=== PATIENT | male | born 2000 | race Hispanic/Latino ===

== ENCOUNTER 2020-01-20 19:09 | Inpatient (IN) | payer SELFPAY ==
[~2020-01-20] VITALS: Ht 170.2 cm; Wt 79.4 kg
[2020-01-20] MEDS ORDERED: PANTOPRAZOLE 40 MG 10ML VIAL IV STA (19:26)
[2020-01-20] MEDS ORDERED: ONDANSETRON HCL INJ 2MG/ML 2ML 2 MG/ML VIAL IV STA (19:26)
[2020-01-20] MEDS ORDERED: SODIUM CHLORIDE 0.9% 1000ML 1,000 ML IV ONE (19:30)
--- NOTE | 2020-01-20 19:30 | NUR ---
glucose of 570 mg/dl, Dr. Rogel made aware
--- NOTE | 2020-01-20 19:32 | Emergency Department Note ---
History of Present Illnes History of Present Illness Chief Complaint: Abdominal Complaints History of Present Illness This is a 19 year old male /o generalized body weakness, nausea and vomiting for 3 days, pt denies being tested for covid-19, states that he is a diabetic and he last checked his sugar 3 days and it was over 200 mg/dl. Historian: Patient Arrival Mode: Car Onset (how long ago): day(s) (3) Location: abd Quality: intermittent epigastric pain, n/v for 3 days Radiation: Reports non-radiation Severity: severe Onset quality: gradual Duration (how long): day(s) (3) Progression: worsening Chronicity: new Context: Denies recent illness, Denies recent surgery, Denies trauma/injury Relieving factors: none Exacerbating factors: none Associated symptoms: Reports denies other symptoms Treatments prior to arrival: none Past Medical/Family History Physician Review I have reviewed the patient's past medical and family history. Any updates have been documented here. Past Medical History Recent Fever: No Clinical Suspicion of Infectio: No New/Unexplained Change in Ment: No Past Medical History: Diabetes Other Medical History: dka Past Surgical History: None Social History Smoking Cessation: Former smoker Alcohol Use: Occasional Any Illegal Drug Use: No Family History Family history of heart diseas: No Other family history htn Review of Systems Review of Systems Constitutional: Reports no symptoms EENTM: Reports no symptoms Cardiovascular: Reports no symptoms Respiratory: Reports no symptoms Gastrointestinal: Reports as per HPI Genitourinary: Reports no symptoms Musculoskeletal: Reports no symptoms Integumentary: Reports no symptoms Neurological: Reports no symptoms Psychological: Reports no symptoms Endocrine: Reports no symptoms Hematological/Lymphatic: Reports no symptoms Physical Exam Related Data Allergies: Coded Allergies: No Known Allergies (Unverified , 01/20/20) Triage Vital Signs Vital Signs Date Time Temp Pulse Resp B/P (MAP) Pulse Ox O2 Delivery O2 Flow Rate FiO2 01/20/20 19:20 97.7 120 22 140/92 100 Room Air Vital signs reviewed: Yes Physical Exam CONSTITUTIONAL Constitutional: Present well-developed, Present well-nourished, Present distressed (mild) HENT HENT: Present normocephalic, Present atraumatic, Present mucosae dry, Present nose normal HENT L/R: Present left ext ear normal, Present right ext ear normal EYES Eyes: Reports PERRL, Reports conjunctivae normal NECK Neck: Present ROM normal PULMONARY Pulmonary: Present effort normal, Present breath sounds normal CARDIOVASCULAR Cardiovascular: Present regular rhythm, Present heart sounds normal, Present capillary refill normal, Present tachycardia (120) GASTROINTESTINAL Abdominal: Present soft, Present nontender, Present bowel sounds normal GENITOURINARY Genitourinary: Present exam deferred SKIN Skin: Present warm, Present dry MUSCULOSKELETAL Musculoskeletal: Present ROM normal NEUROLOGICAL Neurological: Present alert, Present oriented x 3, Present no gross motor or sensory deficits PSYCHOLOGICAL Psychological: Present mood/affect normal, Present judgement normal Results Laboratory Laboratory Laboratory Tests Test 01/20/20 19:30 White Blood Count 6.02 x10e3/uL (4.8-10.8) Red Blood Count 6.30 x10e6/uL (4.3-5.7) Hemoglobin 17.3 g/dL (14.0-18.0) Hematocrit 51.4 % (38.2-49.6) Mean Corpuscular Volume 81.6 fL (81-99) Mean Corpuscular Hemoglobin 27.5 pg (28-32) Mean Corpuscular Hemoglobin Concent 33.7 g/dL (31-35) Red Cell Distribution Width 13.7 % (11.7-14.4) Platelet Count 316 x10e3/uL (140-360) Neutrophils (%) (Auto) 65.5 % (38.7-80.0) Lymphocytes (%) (Auto) 29.7 % (18.0-39.1) Monocytes (%) (Auto) 2.8 % (4.4-11.3) Eosinophils (%) (Auto) 1.3 % (0.0-6.0) Basophils (%) (Auto) 0.5 % (0.0-1.0) Neutrophils # (Auto) 3.9 (2.1-6.9) Lymphocytes # (Auto) 1.8 (1.0-3.2) Monocytes # (Auto) 0.2 (0.2-0.8) Eosinophils # (Auto) 0.1 (0.0-0.4) Basophils # (Auto) 0.0 (0.0-0.1) Absolute Immature Granulocyte (auto 0.01 x10e3/uL (0-0.1) Urine Color Yellow (YELLOW) Urine Clarity Clear (CLEAR) Urine pH 5 (5 - 7) Urine Specific [employer] 1.020 (1.010-1.025) Urine Protein 1+ (NEGATIVE) Urine Glucose (UA) 2+ (NEGATIVE) Urine Ketones 2+ (NEGATIVE) Urine Blood Trace (NEGATIVE) Urine Nitrite Negative (NEGATIVE) Urine Bilirubin Small (NEGATIVE) Urine Urobilinogen 0.2 mg/dL (0.2 - 1) Urine Leukocyte Esterase Negative (NEGATIVE) Urine RBC 0-5 /HPF (0-5) Urine WBC None /HPF (0-5) Urine Epithelial Cells None /LPF (NONE) Urine Bacteria None /HPF (NONE) Sodium Level 132 mmol/L (136-145) Potassium Level 3.9 mmol/L (3.5-5.1) Chloride Level 100 mmol/L (98-107) Carbon Dioxide Level 8 mmol/L (22-29) Anion Gap 27.9 mmol/L (8-16) Blood Urea Nitrogen 7 mg/dL (7-26) Creatinine 1.70 mg/dL (0.72-1.25) Estimat Glomerular Filtration Rate 51 ML/MIN (60-) BUN/Creatinine Ratio 4 (6-25) Glucose Level 566 mg/dL (74-118) Calcium Level 9.2 mg/dL (8.4-10.2) Total Bilirubin 0.5 mg/dL (0.2-1.2) Aspartate Amino Transf (AST/SGOT) 24 IU/L (5-34) Alanine Aminotransferase (ALT/SGPT) 20 IU/L (0-55) Alkaline Phosphatase 123 IU/L (40-150) Total Protein 8.6 g/dL (6.5-8.1) Albumin 4.6 g/dL (3.5-5.0) Globulin 4.0 g/dL (2.3-3.5) Albumin/Globulin Ratio 1.2 (0.8-2.0) Amylase Level 31 U/L (25-125) Lipase 34 U/L (8-78) Lab results reviewed: Yes Critical Care Time Total Critical Care Time (min): 31 Critcal care necessary due to: endocrine crisis Critcal care time spent by me: develop tx plan w patient/surrogate, discussion w consultants, discussion w primary provider, evaluation patient response to tx, examination of patient, obtaining hx from patient/surrogate, order/perform tx or interventions, order/review laboratory studies, pulse oximetry, re-evaluation of patient condition Assessment & Plan Medical Decision Making [facility] pt with h/o dm and dka with abd pain,n/v/d for 3 days cbc, cmp, amylase, lipase, ua, ordered to eval for dka, pancreatitis, elevated lft's, leukocytosis, electrolyte abnormality, ketones in urine, dehydration, renal insufficiency zofran 4 mg iv ordered protonix 40 mg iv ordered ns 1 liter bolus iv ordered PT FOUND TO BE IN DKA DKA INSULIN PROTOCOL INITIATED I SPOKE WITH DR LAL, DR PAVON AND DR ADAM, ADMIT ICU Assessment & Plan Final Impression: (1) DKA (diabetic ketoacidoses) (2) Nausea & vomiting Depart Disposition: ADMITTED Last Vital Signs Date Time Temp Pulse Resp B/P (MAP) Pulse Ox O2 Delivery O2 Flow Rate FiO2 01/20/20 19:20 97.7 120 22 140/92 100 Room Air URBANO RONDON MD Jan 20, 2020 19:32
[2020-01-20 19:43] LABS: BASOPHILS % 0.5 % (0.0-1.0); EOSINOPHILS # (AUTO) 0.1 (0.0-0.4); EOSINOPHILS % 1.3 % (0.0-6.0); HEMATOCRIT 51.4 % (38.2-49.6); HEMOGLOBIN 17.3 g/dL (14.0-18.0); LYMPHOCYTES # (AUTO) 1.8 (1.0-3.2); LYMPHOCYTES % 29.7 % (18.0-39.1); MEAN CORPUSCULAR HEMOGLOBIN 27.5 pg (28-32); MEAN CORPUSCULAR HGB CONC 33.7 g/dL (31-35); MEAN CORPUSCULAR VOLUME 81.6 fL (81-99); MONOCYTES # (AUTO) 0.2 (0.2-0.8); MONOCYTES % 2.8 % (4.4-11.3); NEUTROPHILS # (AUTO) 3.9 (2.1-6.9); NEUTROPHILS % 65.5 % (38.7-80.0); PLATELET COUNT 316 x10e3/uL (140-360); RED CELL DISTRIBUTION WIDTH 13.7 % (11.7-14.4)
[2020-01-20] MEDS ORDERED: PANTOPRAZOLE 40 MG 10ML VIAL ONE (19:52)
[2020-01-20 20:05] LABS: ALBUMIN 4.6 g/dL (3.5-5.0); ALBUMIN/GLOBULIN RATIO 1.2 (0.8-2.0); ANION GAP 27.9 mmol/L (8-16); CALCIUM 9.2 mg/dL (8.4-10.2); CREATININE, SERUM 1.7 mg/dL (0.72-1.25); POTASSIUM 3.9 mmol/L (3.5-5.1)
[2020-01-20 20:09] LABS: BILIRUBIN,URINE SMALL (NEGATIVE); CLARITY,URINE CLEAR (CLEAR); COLOR,URINE YELLOW (YELLOW); KETONES,URINE 2+ (NEGATIVE); LEUKOCYTE ESTERASE ,URINE NEGATIVE (NEGATIVE); NITRITE,URINE NEGATIVE (NEGATIVE); PROTEIN,URINE DIPSTICK 1+ (NEGATIVE); URINE UROBILINOGEN 0.2 mg/dL (0.2 - 1)
[2020-01-20 20:20] LABS: AMYLASE 31 U/L (25-125); LIPASE 34 U/L (8-78)
[2020-01-20 20:22] LABS: RBC,URINE 0-5 /HPF (0-5)
[2020-01-20] MEDS ORDERED: POTASSIUM CHLORIDE 20MEQ/100ML 200 ML IV PRN (20:30)
[2020-01-20] MEDS ORDERED: ONDANSETRON HCL INJ 2MG/ML 2ML 2 MG/ML VIAL IV PRN (20:30)
[2020-01-20] MEDS ORDERED: POTASSIUM CHLORIDE 20MEQ/100ML 100 ML INJ PRN (20:30)
[2020-01-20] MEDS ORDERED: SODIUM CHLORIDE 0.9% 1000ML 1,000 ML IV SCH (20:30)
--- OUTSIDE RECORDS SUMMARY | 2020-01-20 20:33 | XMS REPORT | Continuity of Care Document ---
Author Author [facility] Organization [facility] Address [address] [place] [address] Phone Unavailable Care Team Providers Care Sales Service Executive Name Role Phone Unavailable Unavailable Payers Payer Name Policy Type Policy Number Effective Date Expiration Date S ource Problems This patient has no known problems. Allergies, Adverse Reactions, Alerts Allergy Name Allergy Type Status Severity Reaction(s) Onset Date Inacti ve Date Treating Clinician Comments Source No Known Allergies DA Active U 2016-12-07 00:00:00 [facility] Medications This patient has no known medications. Procedures This patient has no known procedures. Results Test Description Test Time Test Comments Results Result Comments Source LACTIC ACID 2019 18:02:00 Test Item LACTIC ACID (test code = LACT) 0.8 mmol/L 0.4-1.9 N COMMENTS TO CHANNEL LIP WETTER: add onBASIC METABOLIC [id number] 17:11:00* Test Item Value Reference Range Interpretation Comments SODIUM (test code = NA) 140 mmol/L 136-145 RESU LT VERIFIED BY REPEAT ANALYSIS POTASSIUM (test code = K) 3.6 mmol/L 3.5-5.1 N CHLORIDE (test code = CL) 103.0 mmol/L 98-107 N CARBON DIOXIDE (test code = CO2) 28.0 mmol/L 21-32 N ANION GAP (test code = GAP) 12.6 10-20 N GLUCOSE (test code = GLU) 237 mg/dL 74-106 H BLOOD UREA NITROGEN (test code = BUN) 5 mg/dL 7-18 L GLOMERULAR FILTRATION RATE (test code = GFR) > 60 mL/min >=60 Estimated GFR by using Modified MDRD formula.Chronic kidney disease is defined as either kidney damageor GFR <60 mL/min/1.73 m2 for >3 months. CREATININE (test code = CREAT) 0.60 mg/dL 0.7-1.3 L BUN/CREATININE RATIO (test code = BUN/CREA) 8.9 10-20 L CALCIUM (test code = CA) 8.3 mg/dL 8.5-10.1 L [id number] 16:42:00* Test Item Value Reference Range Interpretation Comments GLUBED (test code = GLUBED) 220 mg/dL 74-106 H Performed by certified solder deposit operator at [facility] [id number] 14:56:00* Test Item Value Reference Range Interpretation Comments GLUBED (test code = GLUBED) 247 mg/dL 74-106 H Performed by certified solder deposit operator at [facility] BASIC METABOLIC [id number] 13:07:00* Test Item Value Reference Range Interpretation Comments SODIUM (test code = NA) 145 mmol/L 136-145 N POTASSIUM (test code = K) 2.9 mmol/L 3.5-5.1 L Re sults called to [id number] by V.LAB.DINO 04/18/19 1307Critical results verified and read back by Nurse? Y CHLORIDE (test code = CL) 108.0 mmol/L 98-107 H CARBON DIOXIDE (test code = CO2) 28.0 mmol/L 21-32 N ANION GAP (test code = GAP) 11.9 10-20 N GLUCOSE (test code = GLU) 100 mg/dL 74-106 N BLOOD UREA NITROGEN (test code = BUN) 5 mg/dL 7-18 L GLOMERULAR FILTRATION RATE (test code = GFR) > 60 mL/min >=60 Estimated GFR by using Modified MDRD formula.Chronic kidney disease is defined as either kidney damageor GFR <60 mL/min/1.73 m2 for >3 months. CREATININE (test code = CREAT) 0.60 mg/dL 0.7-1.3 L BUN/CREATININE RATIO (test code = BUN/CREA) 9.0 10-20 L CALCIUM (test code = CA) 8.2 mg/dL 8.5-10.1 L SPECIMEN COMMENTS: Q4H while on insulin [id number] 12:44:00* Test Item Value Reference Range Interpretation Comments GLUBED (test code = GLUBED) 67 mg/dL 74-106 L Performed by certified solder deposit operator at [facility] [id number] 11:41:00* Test Item Value Reference Range Interpretation Comments GLYCOSYLATED HEMOGLOBIN (HA1C) (test code = GLYHGB) 12.8 % HbA1 4. 8-6.0 H ESTIMATED AVERAGE GLUCOSE (test code = EAG) 321 MG/DL [id number] 11:30:00* Test Item Value Reference Range Interpretation Comments GLUBED (test code = GLUBED) 104 mg/dL 74-106 N Performed by certified solder deposit operator at [facility] BASIC METABOLIC [id number] 10:00:00* Test Item Value Reference Range Interpretation Comments SODIUM (test code = NA) 142 mmol/L 136-145 N POTASSIUM (test code = K) 3.8 mmol/L 3.5-5.1 N CHLORIDE (test code = CL) 107.0 mmol/L 98-107 N CARBON DIOXIDE (test code = CO2) 26.0 mmol/L 21-32 N ANION GAP (test code = GAP) 12.8 10-20 N GLUCOSE (test code = GLU) 257 mg/dL 74-106 H BLOOD UREA NITROGEN (test code = BUN) 6 mg/dL 7-18 L GLOMERULAR FILTRATION RATE (test code = GFR) > 60 mL/min >=60 Estimated GFR by using Modified MDRD formula.Chronic kidney disease is defined as either kidney damageor GFR <60 mL/min/1.73 m2 for >3 months. CREATININE (test code = CREAT) 0.60 mg/dL 0.7-1.3 L BUN/CREATININE RATIO (test code = BUN/CREA) 9.6 10-20 L CALCIUM (test code = CA) 8.4 mg/dL 8.5-10.1 L SPECIMEN COMMENTS: Q4H while on insulin [id number] 09:54:00* Test Item Value Reference Range Interpretation Comments GLUBED (test code = GLUBED) 159 mg/dL 74-106 H Performed by certified solder deposit operator at [facility] BASIC METABOLIC [id number] 09:53:00* Test Item Value Reference Range Interpretation Comments SODIUM (test code = NA) 142 mmol/L 136-145 N POTASSIUM (test code = K) 3.8 mmol/L 3.5-5.1 N CHLORIDE (test code = CL) 107.0 mmol/L 98-107 N CARBON DIOXIDE (test code = CO2) mmol/L 21-32 ANION GAP (test code = GAP) 10-20 GLUCOSE (test code = GLU) mg/dL 74-106 BLOOD UREA NITROGEN (test code = BUN) mg/dL 7-18 GLOMERULAR FILTRATION RATE (test code = GFR) mL/min >=60 CREATININE (test code = CREAT) mg/dL 0.7-1.3 BUN/CREATININE RATIO (test code = BUN/CREA) 10-20 CALCIUM (test code = CA) mg/dL 8.5-10.1 SPECIMEN COMMENTS: Q4H while on insulin [id number] 09:17:00* Test Item Value Reference Range Interpretation Comments GLUBED (test code = GLUBED) 255 mg/dL 74-106 H Performed by certified solder deposit operator at [facility] DRUGS OF ABUSE SCREEN [id number] 08:56:00* Test Item Value Reference Range Interpretation Comments UA PH DIPSTICK (test code = DARLENE) 5.0 5.0-8.0 URN COCAINE (test code = COCAURN) NEGATIVE <300 ng/mL URN CANNABINOIDS (test code = CANNABURN) NEGATIVE <50 ng/mL URN AMPHETAMINE (test code = AMPHETURN) NEGATIVE <1000 ng/mL URN BARBITURATE (test code = BARBITURN) NEGATIVE <200 ng/mL URN BENZODIAZEPINE (test code = BENZOURN) NEGATIVE <200 ng/mL URN OPIATES (test code = OPIATURN) NEGATIVE <300 ng/mL URN PHENCYCLIDINE (PCP) (test code = PHENCURN) NEGATIVE <25 ng/ mL URN METHADONE (test code = METHAURN) NEGATIVE <300 ng/mL DRUGS OF ABUSE SCREEN [id number] 08:48:00* Test Item Value Reference Range Interpretation Comments UA PH DIPSTICK (test code = DARLENE) 5.0-8.0 URN COCAINE (test code = COCAURN) NEGATIVE <300 ng/mL URN CANNABINOIDS (test code = CANNABURN) NEGATIVE <50 ng/mL URN AMPHETAMINE (test code = AMPHETURN) NEGATIVE <1000 ng/mL URN BARBITURATE (test code = BARBITURN) NEGATIVE <200 ng/mL URN BENZODIAZEPINE (test code = BENZOURN) NEGATIVE <200 ng/mL URN OPIATES (test code = OPIATURN) NEGATIVE <300 ng/mL URN PHENCYCLIDINE (PCP) (test code = PHENCURN) NEGATIVE <25 ng/ mL URN METHADONE (test code = METHAURN) NEGATIVE <300 ng/mL URINALYSIS [id number] 08:48:00* Test Item Value Reference Range Interpretation Comments UA COLOR (test code = COLU) YELLOW YELLOW UA APPEARANCE (test code = APPU) CLEAR CLEAR UA GLUCOSE DIPSTICK (test code = DGLUU) 300-500 (3+) mg/dL NEGATIVE UA BILIRUBIN DIPSTICK (test code = BILU) NEGATIVE NEGATIVE UA KETONE DIPSTICK (test code = KETU) 1+ mg/dL NEGATIVE UA SPECIFIC GRAVITY (test code = SGU) <=1.005 1.001-1.035 UA BLOOD DIPSTICK (test code = TERRELL) NEGATIVE NEGATIVE UA PH DIPSTICK (test code = DARLENE) 5.0 5.0-8.0 UA PROTEIN DIPSTICK (test code = PROU) NEGATIVE mg/dL Neg-15 UA UROBILINIOGEN DIPSTICK (test code = URO) 0.2 mg/dL 0.0-0.2 UA NITRITE DIPSTICK (test code = YOAV) NEGATIVE NEGATIVE UA LEUKOCYTE ESTERASE W REFLEX (test code = LEUUR) NEGATIVE NEG ATIVE UA WBC (test code = WBCU) 0-5 per HPF 0-5 UA RBC (test code = RBCU) NONE SEEN per HPF 0-5 UA EPITHELIAL CELLS (test code = EPIU) None seen per HPF Few UA BACTERIA (test code = BACU) NONE SEEN per HPF NONE UA MUCUS (test code = MUCU) FEW #/LPF FEW Urine Source? Clean CatchURINALYSIS [id number] 08:42:00* Test Item Value Reference Range Interpretation Comments UA COLOR (test code = COLU) YELLOW YELLOW UA APPEARANCE (test code = APPU) CLEAR CLEAR UA GLUCOSE DIPSTICK (test code = DGLUU) 300-500 (3+) mg/dL NEGATIVE UA BILIRUBIN DIPSTICK (test code = BILU) NEGATIVE NEGATIVE UA KETONE DIPSTICK (test code = KETU) 1+ mg/dL NEGATIVE UA SPECIFIC GRAVITY (test code = SGU) <=1.005 1.001-1.035 UA BLOOD DIPSTICK (test code = TERRELL) NEGATIVE NEGATIVE UA PH DIPSTICK (test code = DARLENE) 5.0 5.0-8.0 UA PROTEIN DIPSTICK (test code = PROU) NEGATIVE mg/dL Neg-15 UA UROBILINIOGEN DIPSTICK (test code = URO) 0.2 mg/dL 0.0-0.2 UA NITRITE DIPSTICK (test code = YOAV) NEGATIVE NEGATIVE UA LEUKOCYTE ESTERASE W REFLEX (test code = LEUUR) NEGATIVE NEG ATIVE UA WBC (test code = WBCU) per HPF 0-5 UA RBC (test code = RBCU) per HPF 0-5 UA EPITHELIAL CELLS (test code = EPIU) per HPF Few UA BACTERIA (test code = BACU) per HPF NONE Urine Source? Clean CatchURINALYSIS [id number] 08:42:00* Test Item Value Reference Range Interpretation Comments UA COLOR (test code = COLU) YELLOW YELLOW UA APPEARANCE (test code = APPU) CLEAR CLEAR UA GLUCOSE DIPSTICK (test code = DGLUU) 300-500 (3+) mg/dL NEGATIVE UA BILIRUBIN DIPSTICK (test code = BILU) NEGATIVE NEGATIVE UA KETONE DIPSTICK (test code = KETU) 1+ mg/dL NEGATIVE UA SPECIFIC GRAVITY (test code = SGU) <=1.005 1.001-1.035 UA BLOOD DIPSTICK (test code = TERRELL) NEGATIVE NEGATIVE UA PH DIPSTICK (test code = DARLENE) 5.0 5.0-8.0 UA PROTEIN DIPSTICK (test code = PROU) NEGATIVE mg/dL Neg-15 UA UROBILINIOGEN DIPSTICK (test code = URO) 0.2 mg/dL 0.0-0.2 UA NITRITE DIPSTICK (test code = YOAV) NEGATIVE NEGATIVE UA LEUKOCYTE ESTERASE W REFLEX (test code = LEUUR) NEGATIVE NEG ATIVE UA WBC (test code = WBCU) 0-5 per HPF 0-5 UA RBC (test code = RBCU) per HPF 0-5 UA EPITHELIAL CELLS (test code = EPIU) per HPF Few UA BACTERIA (test code = BACU) per HPF NONE UA MUCUS (test code = MUCU) FEW #/LPF FEW Urine Source? Clean CatchBASIC METABOLIC [id number] 08:28:00* Test Item Value Reference Range Interpretation Comments SODIUM (test code = NA) 142 mmol/L 136-145 RESU LT VERIFIED BY REPEAT ANALYSIS POTASSIUM (test code = K) 3.5 mmol/L 3.5-5.1 N CHLORIDE (test code = CL) 107.0 mmol/L 98-107 N CARBON DIOXIDE (test code = CO2) 25.0 mmol/L 21-32 N ANION GAP (test code = GAP) 13.5 10-20 N GLUCOSE (test code = GLU) 361 mg/dL 74-106 H BLOOD UREA NITROGEN (test code = BUN) 6 mg/dL 7-18 L GLOMERULAR FILTRATION RATE (test code = GFR) > 60 mL/min >=60 Estimated GFR by using Modified MDRD formula.Chronic kidney disease is defined as either kidney damageor GFR <60 mL/min/1.73 m2 for >3 months. CREATININE (test code = CREAT) 0.70 mg/dL 0.7-1.3 N BUN/CREATININE RATIO (test code = BUN/CREA) 8.2 10-20 L CALCIUM (test code = CA) 8.1 mg/dL 8.5-10.1 L SPECIMEN COMMENTS: Q4H while on insulin dripSPECIMEN COMMENTS: Q8H while on insu sarah [id number] 08:28:00* Test Item Value Reference Range Interpretation Comments MAGNESIUM (test code = MAG) 1.8 mg/dL 1.8-2.4 N SPECIMEN COMMENTS: Q4H while on insulin dripSPECIMEN COMMENTS: Q8H while on insu sarah dripBASIC METABOLIC [id number] 08:22:00* Test Item Value Reference Range Interpretation Comments SODIUM (test code = NA) 142 mmol/L 136-145 POTASSIUM (test code = K) 3.5 mmol/L 3.5-5.1 N CHLORIDE (test code = CL) 107.0 mmol/L 98-107 N CARBON DIOXIDE (test code = CO2) 25.0 mmol/L 21-32 N ANION GAP (test code = GAP) 13.5 10-20 N GLUCOSE (test code = GLU) 361 mg/dL 74-106 H BLOOD UREA NITROGEN (test code = BUN) 6 mg/dL 7-18 L GLOMERULAR FILTRATION RATE (test code = GFR) > 60 mL/min >=60 Estimated GFR by using Modified MDRD formula.Chronic kidney disease is defined as either kidney damageor GFR <60 mL/min/1.73 m2 for >3 months. CREATININE (test code = CREAT) 0.70 mg/dL 0.7-1.3 N BUN/CREATININE RATIO (test code = BUN/CREA) 8.2 10-20 L CALCIUM (test code = CA) 8.1 mg/dL 8.5-10.1 L SPECIMEN COMMENTS: Q4H while on insulin dripSPECIMEN COMMENTS: Q8H while on insu sarah [id number] 08:22:00* Test Item Value Reference Range Interpretation Comments MAGNESIUM (test code = MAG) 1.8 mg/dL 1.8-2.4 N SPECIMEN COMMENTS: Q4H while on insulin dripSPECIMEN COMMENTS: Q8H while on insu sarah [id number] 08:06:00* Test Item Value Reference Range Interpretation Comments GLUBED (test code = GLUBED) 322 mg/dL 74-106 H Performed by certified solder deposit operator at [facility] [id number] 07:02:00* Test Item Value Reference Range Interpretation Comments GLUBED (test code = GLUBED) > 500 mg/dL 74-106 HH Performed by certified solder deposit operator at [facility] - XR CHEST 1 [id number] 05:17:00 FAX: Solomon Palacios MD [place]: B St: [facility] FAX: Jihan Champion MD [phone] Name: SHARON DIAZ [facility] : 2000 Age/S: 19/M [address] [facility] Unit #: [id number] Loc: AN[place]IONE [place] [address] Phys: Solomon Palacios MD Acct: [id number] Dis Date: Status: REG ER PHONE #: [phone] Exam Date: 2019 0453 FAX #: [phone] Reason: Altered Mental Status EXAMS: CPT CODE: [id number] XR CHEST 1 V 68728 AFTER HOURS SERVICE ON: 2019 5:17 AM AP Portable Chest Location Code M12 HISTORY: Altered Mental Status FINDINGS: There are no infiltrates. There are no pleural effusions. There is no pneumothorax. Cardiac silhouette and mediastinum appear within normal limits. IMPRESSION: No active pulmonary findings. at 0517 Reported and signed by: Korin Ross M.D. CC: Solomon Palacios MD; Jihan Wise Technologist: Vasu Brooks RT(R); BAKARI ZAYAS RT(R) Trnscrd Date/Time/By: 2019 (0517) : By: [email or web address] Orig Print D/T: S: 2019 (0518) PAGE 1 Signed Report BASIC METABOLIC [id number] 05:12:00* Test Item Value Reference Range Interpretation Comments SODIUM (test code = NA) 131 mmol/L 136-145 L POTASSIUM (test code = K) 3.4 mmol/L 3.5-5.1 L CHLORIDE (test code = CL) 92.0 mmol/L 98-107 L CARBON DIOXIDE (test code = CO2) 21.0 mmol/L 21-32 N ANION GAP (test code = GAP) 21.4 10-20 H GLUCOSE (test code = GLU) 652 mg/dL 74-106 Re sults called [place] [address] by GENEVIEVE 04/18/19 0512Critical results verified and read back by Nurse? Y BLOOD UREA NITROGEN (test code = BUN) 10 mg/dL 7-18 N GLOMERULAR FILTRATION RATE (test code = GFR) > 60 mL/min >=60 Estimated GFR by using Modified MDRD formula.Chronic kidney disease is defined as either kidney damageor GFR <60 mL/min/1.73 m2 for >3 months. CREATININE (test code = CREAT) 1.20 mg/dL 0.7-1.3 N BUN/CREATININE RATIO (test code = BUN/CREA) 8.7 10-20 L CALCIUM (test code = CA) 9.6 mg/dL 8.5-10.1 N HEPATIC FUNCTION [id number] 05:12:00* Test Item Value Reference Range Interpretation Comments TOTAL PROTEIN (test code = PROT) 7.6 gram/dL 6.4-8.2 N ALBUMIN (test code = ALB) 4.1 g/dL 3.4-5.0 N GLOBULIN (test code = GLOB) 3.5 gram/dL 2.7-4.2 N ALBUMIN/GLOBULIN RATIO (test code = A/G) 1.2 0.75-1.50 N BILIRUBIN TOTAL (test code = BILT) 0.40 mg/dL 0.0-1.0 N BILIRUBIN DIRECT (test code = BILD) 0.14 mg/dL 0.0-0.20 N SGOT/AST (test code = AST) 18 IUnit/L 15-37 N SGPT/ALT (test code = ALT) 29 IUnit/L 12-78 N ALKALINE PHOSPHATASE TOTAL (test code = ALKP) 154 IUnit/L 45-117 H Note change in reference range due to change in reagent. [id number] 05:12:00* Test Item Value Reference Range Interpretation Comments TROPONIN-I (test code = TROPI) <0.015 ng/mL 0-0.045 N [id number] 05:12:00* Test Item Value Reference Range Interpretation Comments ALCOHOL (test code = ALC) 181 mg/dL 0.0-3.0 H -- INTERPRETIVE DATA NOTE: POSITIVE SCREENING RESULTS SHOULD BE CONSIDERED PRESUMPTIVE.WHEN COLLECTED FOR MEDICAL PURPOSES ONLY. SPECIMEN WILL NOTBE COLLECTED BY CHAIN OF CUSTODY.IF A CONFIRMATION OF POSITIVE RESULTS IS DESIRED, ACONFIRMATION TEST MUST BE REQUESTED BY THE PHYSICIAN AT ANADDITIONAL CHARGE TO THE PATIENT. BETA [id number] 05:12:00* Test Item Value Reference Range Interpretation Comments BETA HYDROBUTYRATE (test code = BETHYD) 1.53 mmol/L 0.02-0.27 H LACTIC [id number] 05:11:00* Test Item Value Reference Range Interpretation Comments LACTIC ACID (test code = LACT) 5.9 mmol/L 0.4-1.9 HH Results called to [id number] by GENEVIEVE 04/18/19 0510Critical results verified and read back by Nurse?Y BASIC METABOLIC [id number] 05:09:00* Test Item Value Reference Range Interpretation Comments SODIUM (test code = NA) 131 mmol/L 136-145 L POTASSIUM (test code = K) 3.4 mmol/L 3.5-5.1 L CHLORIDE (test code = CL) 92.0 mmol/L 98-107 L CARBON DIOXIDE (test code = CO2) mmol/L 21-32 ANION GAP (test code = GAP) 10-20 GLUCOSE (test code = GLU) mg/dL 74-106 BLOOD UREA NITROGEN (test code = BUN) mg/dL 7-18 GLOMERULAR FILTRATION RATE (test code = GFR) mL/min >=60 CREATININE (test code = CREAT) mg/dL 0.7-1.3 BUN/CREATININE RATIO (test code = BUN/CREA) 10-20 CALCIUM (test code = CA) mg/dL 8.5-10.1 HEPATIC FUNCTION [id number] 05:09:00* Test Item Value Reference Range Interpretation Comments TOTAL PROTEIN (test code = PROT) gram/dL 6.4-8.2 ALBUMIN (test code = ALB) g/dL 3.4-5.0 GLOBULIN (test code = GLOB) gram/dL 2.7-4.2 ALBUMIN/GLOBULIN RATIO (test code = A/G) 0.75-1.50 BILIRUBIN TOTAL (test code = BILT) mg/dL 0.0-1.0 BILIRUBIN DIRECT (test code = BILD) mg/dL 0.0-0.20 SGOT/AST (test code = AST) IUnit/L 15-37 SGPT/ALT (test code = ALT) IUnit/L 12-78 ALKALINE PHOSPHATASE TOTAL (test code = ALKP) IUnit/L 45-117 [id number] 05:09:00* Test Item Value Reference Range Interpretation Comments TROPONIN-I (test code = TROPI) ng/mL 0-0.045 [id number] 05:09:00* Test Item Value Reference Range Interpretation Comments ALCOHOL (test code = ALC) mg/dL 0-3 BETA [id number] 05:09:00* Test Item Value Reference Range Interpretation Comments BETA HYDROBUTYRATE (test code = BETHYD) 1.53 mmol/L 0.02-0.27 H - CT HEAD/BRAIN W/O [id number] 04:59:00 Name: SHARON DIAZ [facility] : 2000 Age/S: 19 / M [address] [facility] Unit #: [id number] Loc: ANTIONE [place] [address] Phys: Solomon Palacios MD Acct: [id number] Dis Date: Status: PRE ER PHONE #: [phone] Exam Date: 2019 0430 FAX #: [phone] Reason: Altered Mental Status EXAMS: CPT CODE: [id number] CT HEAD/BRAIN W/O CONT 84898 AFTER HOURS SERVICE ON: 2019 4:[address] Scan of the Brain Without Contrast Location Code M12 History: Altered Mental Status Technique: Scans were performed on a helical scanner pre IV contrast only. The study is limited secondary to lack of intravenous contrast, particularly for evaluation of masses. One or more of the following dose reduction techniques were used: Automated exposure control, adjustment of the mA and/or kV according to patient size, and/or utilization of iterative reconstruction technique. Findings: There is no hydrocephalus. Basal cisterns are patent. There is no intracranial h yperdense hemorrhage. There is no midline shift or mass effect. No effacem ent of the gonzalez-white matter junction to indicate acute infarction. There is no skull fracture. Impression: No acute int racranial CT findings. at 0459 Reported and signed by: Korin Ross M.D. CC: Solomon Palacios MD; Jihan Wise Technologshelby t:MARIA ELENA YOUNGKINSON CT CTDI: DLP: Trnscb Date/Time: (0459) [email or web address] Orig Print D/T: S: 2019 (0 502) PAGE 1 Signed Report BASIC METABOLIC [id number] 04:56:00* Test Item Value Reference Range Interpretation Comments SODIUM (test code = NA) mmol/L 136-145 POTASSIUM (test code = K) mmol/L 3.5-5.1 CHLORIDE (test code = CL) mmol/L 98-107 CARBON DIOXIDE (test code = CO2) mmol/L 21-32 ANION GAP (test code = GAP) 10-20 GLUCOSE (test code = GLU) mg/dL 74-106 BLOOD UREA NITROGEN (test code = BUN) mg/dL 7-18 GLOMERULAR FILTRATION RATE (test code = GFR) mL/min >=60 CREATININE (test code = CREAT) mg/dL 0.7-1.3 BUN/CREATININE RATIO (test code = BUN/CREA) 10-20 CALCIUM (test code = CA) mg/dL 8.5-10.1 HEPATIC FUNCTION [id number] 04:56:00* Test Item Value Reference Range Interpretation Comments TOTAL PROTEIN (test code = PROT) gram/dL 6.4-8.2 ALBUMIN (test code = ALB) g/dL 3.4-5.0 GLOBULIN (test code = GLOB) gram/dL 2.7-4.2 ALBUMIN/GLOBULIN RATIO (test code = A/G) 0.75-1.50 BILIRUBIN TOTAL (test code = BILT) mg/dL 0.0-1.0 BILIRUBIN DIRECT (test code = BILD) mg/dL 0.0-0.20 SGOT/AST (test code = AST) IUnit/L 15-37 SGPT/ALT (test code = ALT) IUnit/L 12-78 ALKALINE PHOSPHATASE TOTAL (test code = ALKP) IUnit/L 45-117 [id number] 04:56:00* Test Item Value Reference Range Interpretation Comments TROPONIN-I (test code = TROPI) ng/mL 0-0.045 [id number] 04:56:00* Test Item Value Reference Range Interpretation Comments ALCOHOL (test code = ALC) mg/dL 0-3 BETA [id number] 04:56:00* Test Item Value Reference Range Interpretation Comments BETA HYDROBUTYRATE (test code = BETHYD) 1.53 mmol/L 0.02-0.27 H CBC W/AUTO [id number] 04:53:00* Test Item Value Reference Range Interpretation Comments WHITE BLOOD CELL (test code = WBC) 5.8 K/mm3 4.5-12.5 N RED BLOOD CELL (test code = RBC) 5.73 mill/mm3 4.0-5.8 N HEMOGLOBIN (test code = HGB) 15.7 gram/dL 13.0-17.5 N HEMATOCRIT (test code = HCT) 44.2 % 42.0-52.0 N MEAN CELL VOLUME (test code = MCV) 77.1 fL 80-98 L MEAN CELL HGB (test code = MCH) 27.4 picogram 27.0-33.0 N MEAN CELL HGB CONCETRATION (test code = MCHC) 35.5 gram/dL 33.0-36. 0 N RED CELL DISTRIBUTION WIDTH (test code = RDW) 12.3 % 11.6-16. 2 N RED CELL DISTRIBUTION WIDTH SD (test code = RDW-SD) 33.9 fL 37 .0-51.0 L PLATELET COUNT (test code = PLT) 233 K/mm3 150-450 N MEAN PLATELET VOLUME (test code = MPV) 11.3 fL 6.7-11.0 H NEUTROPHIL % (test code = NT%) 45.2 % 39.0-69.0 N IMMATURE GRANULOCYTE % (test code = IG%) 0.2 % 0.0-5.0 N LYMPHOCYTE % (test code = LY%) 45.4 % 25.0-55.0 N MONOCYTE % (test code = MO%) 7.1 % 0.0-10.0 N EOSINOPHIL % (test code = EO%) 1.9 % 0.0-5.0 N BASOPHIL % (test code = BA%) 0.2 % 0.0-1.0 N NUCLEATED RBC % (test code = NRBC%) 0.0 % 0-0 N NEUTROPHIL # (test code = NT#) 2.63 K/mm3 1.8-7.7 N IMMATURE GRANULOCYTE # (test code = IG#) 0.01 x10 3/uL 0-0.03 N LYMPHOCYTE # (test code = LY#) 2.64 K/mm3 1.0-5.0 N MONOCYTE # (test code = MO#) 0.41 K/mm3 0-0.8 N EOSINOPHIL # (test code = EO#) 0.11 K/mm3 0.0-0.5 N BASOPHIL # (test code = BA#) 0.01 K/mm3 0.0-0.2 N NUCLEATED RBC # (test code = NRBC#) 0.00 K/mm3 0.0-0.1 N MANUAL DIFF REQUIRED (test code = MDIFF) NO [id number] 08:21:00* Test Item Value Reference Range Interpretation Comments GLUBED (test code = GLUBED) 109 mg/dL 74-106 H Performed by certified solder deposit operator at [facility]2019-09-18 08:21:00* Test Item Value Reference Range Interpretation Comments GLUBED (test code = GLUBED) 166 mg/dL 74-106 H Performed by certified solder deposit operator at [facility]2019-09-16 10:12:00* Test Item Value Reference Range Interpretation Comments GLUBED (test code = GLUBED) 248 mg/dL 74-106 H Performed by certified solder deposit operator at [facility] [id number] 10:12:00* Test Item Value Reference Range Interpretation Comments GLUBED (test code = GLUBED) 322 mg/dL 74-106 H Performed by certified solder deposit operator at [facility] [id number] 10:12:00* Test Item Value Reference Range Interpretation Comments GLUBED (test code = GLUBED) 169 mg/dL 74-106 H Performed by certified solder deposit operator at [facility] [id number] 10:12:00* Test Item Value Reference Range Interpretation Comments GLUBED (test code = GLUBED) 167 mg/dL 74-106 H Performed by certified solder deposit operator at [facility] [id number] 10:12:00* Test Item Value Reference Range Interpretation Comments GLUBED (test code = GLUBED) 139 mg/dL 74-106 H Performed by certified solder deposit operator at [facility] [id number] 10:12:00* Test Item Value Reference Range Interpretation Comments GLUBED (test code = GLUBED) 283 mg/dL 74-106 H Performed by certified solder deposit operator at [facility] [id number] 07:46:00* Test Item Value Reference Range Interpretation Comments GLUBED (test code = GLUBED) 324 mg/dL 74-106 H Performed by certified solder deposit operator at [facility] COMPREHENSIVE METABOLIC [id number] 08:36:00* Test Item Value Reference Range Interpretation Comments SODIUM (test code = NA) 136 mmol/L 136-145 N POTASSIUM (test code = K) 3.2 mmol/L 3.5-5.1 L CHLORIDE (test code = CL) 103.0 mmol/L 98-107 N CARBON DIOXIDE (test code = CO2) 21.0 mmol/L 21-32 N ANION GAP (test code = GAP) 15.2 10-20 N GLUCOSE (test code = GLU) 256 mg/dL 74-106 H BLOOD UREA NITROGEN (test code = BUN) 7 mg/dL 7-18 N GLOMERULAR FILTRATION RATE (test code = GFR) > 60 mL/min >=60 Estimated GFR by using Modified MDRD formula.Chronic kidney disease is defined as either kidney damageor GFR <60 mL/min/1.73 m2 for >3 months. CREATININE (test code = CREAT) 0.80 mg/dL 0.7-1.3 N BUN/CREATININE RATIO (test code = BUN/CREA) 8.8 10-20 L TOTAL PROTEIN (test code = PROT) 6.0 gram/dL 6.4-8.2 L ALBUMIN (test code = ALB) 3.0 g/dL 3.4-5.0 L GLOBULIN (test code = GLOB) 3.0 gram/dL 2.7-4.2 N ALBUMIN/GLOBULIN RATIO (test code = A/G) 1.0 0.75-1.50 N CALCIUM (test code = CA) 8.6 mg/dL 8.5-10.1 N BILIRUBIN TOTAL (test code = BILT) 0.60 mg/dL 0.0-1.0 N SGOT/AST (test code = AST) 38 IUnit/L 15-37 H SGPT/ALT (test code = ALT) 58 IUnit/L 12-78 N ALKALINE PHOSPHATASE TOTAL (test code = ALKP) 87 IUnit/L 45-117 N Note change in reference range due to change in reagent. COMPREHENSIVE METABOLIC [id number] 08:19:00* Test Item Value Reference Range Interpretation Comments SODIUM (test code = NA) 136 mmol/L 136-145 N POTASSIUM (test code = K) 3.2 mmol/L 3.5-5.1 L CHLORIDE (test code = CL) 103.0 mmol/L 98-107 N CARBON DIOXIDE (test code = CO2) mmol/L 21-32 ANION GAP (test code = GAP) 10-20 GLUCOSE (test code = GLU) mg/dL 74-106 BLOOD UREA NITROGEN (test code = BUN) mg/dL 7-18 GLOMERULAR FILTRATION RATE (test code = GFR) mL/min >=60 CREATININE (test code = CREAT) mg/dL 0.7-1.3 BUN/CREATININE RATIO (test code = BUN/CREA) 10-20 TOTAL PROTEIN (test code = PROT) gram/dL 6.4-8.2 ALBUMIN (test code = ALB) g/dL 3.4-5.0 GLOBULIN (test code = GLOB) gram/dL 2.7-4.2 ALBUMIN/GLOBULIN RATIO (test code = A/G) 0.75-1.50 CALCIUM (test code = CA) mg/dL 8.5-10.1 BILIRUBIN TOTAL (test code = BILT) mg/dL 0.0-1.0 SGOT/AST (test code = AST) IUnit/L 15-37 SGPT/ALT (test code = ALT) IUnit/L 12-78 ALKALINE PHOSPHATASE TOTAL (test code = ALKP) IUnit/L 45-117 CBC W/AUTO [id number] 06:22:00* Test Item Value Reference Range Interpretation Comments WHITE BLOOD CELL (test code = WBC) 4.7 K/mm3 4.5-12.5 N RED BLOOD CELL (test code = RBC) 5.31 mill/mm3 4.0-5.8 N HEMOGLOBIN (test code = HGB) 14.2 gram/dL 13.0-17.5 N HEMATOCRIT (test code = HCT) 42.3 % 42.0-52.0 N MEAN CELL VOLUME (test code = MCV) 79.7 fL 80-98 L MEAN CELL HGB (test code = MCH) 26.7 picogram 27.0-33.0 L MEAN CELL HGB CONCETRATION (test code = MCHC) 33.6 gram/dL 33.0-36. 0 N RED CELL DISTRIBUTION WIDTH (test code = RDW) 14.6 % 11.6-16. 2 N RED CELL DISTRIBUTION WIDTH SD (test code = RDW-SD) 41.2 fL 37 .0-51.0 N PLATELET COUNT (test code = PLT) 193 K/mm3 150-450 N MEAN PLATELET VOLUME (test code = MPV) 11.0 fL 6.7-11.0 N NEUTROPHIL % (test code = NT%) 43.6 % 39.0-69.0 N IMMATURE GRANULOCYTE % (test code = IG%) 0.2 % 0.0-5.0 N LYMPHOCYTE % (test code = LY%) 43.9 % 25.0-55.0 N MONOCYTE % (test code = MO%) 6.4 % 0.0-10.0 N EOSINOPHIL % (test code = EO%) 5.5 % 0.0-5.0 H BASOPHIL % (test code = BA%) 0.4 % 0.0-1.0 N NUCLEATED RBC % (test code = NRBC%) 0.0 % 0-0 N NEUTROPHIL # (test code = NT#) 2.05 K/mm3 1.8-7.7 N IMMATURE GRANULOCYTE # (test code = IG#) 0.01 x10 3/uL 0-0.03 N LYMPHOCYTE # (test code = LY#) 2.07 K/mm3 1.0-5.0 N MONOCYTE # (test code = MO#) 0.30 K/mm3 0-0.8 N EOSINOPHIL # (test code = EO#) 0.26 K/mm3 0.0-0.5 N BASOPHIL # (test code = BA#) 0.02 K/mm3 0.0-0.2 N NUCLEATED RBC # (test code = NRBC#) 0.00 K/mm3 0.0-0.1 N CBC W/AUTO [id number] 06:20:00* Test Item Value Reference Range Interpretation Comments WHITE BLOOD CELL (test code = WBC) K/mm3 4.5-12.5 RED BLOOD CELL (test code = RBC) mill/mm3 4.0-5.8 HEMOGLOBIN (test code = HGB) 14.2 gram/dL 13.0-17.5 N HEMATOCRIT (test code = HCT) 42.3 % 42.0-52.0 N MEAN CELL VOLUME (test code = MCV) fL 80-98 MEAN CELL HGB (test code = MCH) picogram 27.0-33.0 MEAN CELL HGB CONCETRATION (test code = MCHC) gram/dL 33.0-36. 0 RED CELL DISTRIBUTION WIDTH (test code = RDW) % 11.6-16. 2 RED CELL DISTRIBUTION WIDTH SD (test code = RDW-SD) fL 37 .0-51.0 PLATELET COUNT (test code = PLT) K/mm3 150-450 MEAN PLATELET VOLUME (test code = MPV) fL 6.7-11.0 NEUTROPHIL % (test code = NT%) % 39.0-69.0 IMMATURE GRANULOCYTE % (test code = IG%) % 0.0-5.0 LYMPHOCYTE % (test code = LY%) % 25.0-55.0 MONOCYTE % (test code = MO%) % 0.0-10.0 EOSINOPHIL % (test code = EO%) % 0.0-5.0 BASOPHIL % (test code = BA%) % 0.0-1.0 NEUTROPHIL # (test code = NT#) K/mm3 1.8-7.7 LYMPHOCYTE # (test code = LY#) K/mm3 1.0-5.0 MONOCYTE # (test code = MO#) K/mm3 0-0.8 EOSINOPHIL # (test code = EO#) K/mm3 0.0-0.5 BASOPHIL # (test code = BA#) K/mm3 0.0-0.2 BASIC METABOLIC [id number] 03:07:00* Test Item Value Reference Range Interpretation Comments SODIUM (test code = NA) 138 mmol/L 136-145 RESU LT VERIFIED BY REPEAT ANALYSIS POTASSIUM (test code = K) 3.3 mmol/L 3.5-5.1 L CHLORIDE (test code = CL) 106.0 mmol/L 98-107 N CARBON DIOXIDE (test code = CO2) 18.0 mmol/L 21-32 L ANION GAP (test code = GAP) 17.3 10-20 N GLUCOSE (test code = GLU) 237 mg/dL 74-106 H BLOOD UREA NITROGEN (test code = BUN) 7 mg/dL 7-18 N GLOMERULAR FILTRATION RATE (test code = GFR) > 60 mL/min >=60 Estimated GFR by using Modified MDRD formula.Chronic kidney disease is defined as either kidney damageor GFR <60 mL/min/1.73 m2 for >3 months. CREATININE (test code = CREAT) 0.80 mg/dL 0.7-1.3 N BUN/CREATININE RATIO (test code = BUN/CREA) 8.5 10-20 L CALCIUM (test code = CA) 8.6 mg/dL 8.5-10.1 N [id number] 03:07:00* Test Item Value Reference Range Interpretation Comments PHOSPHORUS (test code = PHOS) 2.2 mg/dL 2.5-4.9 L [id number] 03:07:00* Test Item Value Reference Range Interpretation Comments MAGNESIUM (test code = MAG) 1.8 mg/dL 1.8-2.4 N BASIC METABOLIC [id number] 17:36:00* Test Item Value Reference Range Interpretation Comments SODIUM (test code = NA) 143 mmol/L 136-145 N POTASSIUM (test code = K) 2.7 mmol/L 3.5-5.1 Re sults called to [id number] by [facility] 02/03/19 1734Critical results verified and read back by Nurse? Y CHLORIDE (test code = CL) 115.0 mmol/L 98-107 H CARBON DIOXIDE (test code = CO2) 19.0 mmol/L 21-32 L ANION GAP (test code = GAP) 11.7 10-20 N RESULTS CALLED TO [id number] BY [facility] 02/03/19 1735 GLUCOSE (test code = GLU) 154 mg/dL 74-106 H BLOOD UREA NITROGEN (test code = BUN) 5 mg/dL 7-18 L GLOMERULAR FILTRATION RATE (test code = GFR) > 60 mL/min >=60 Estimated GFR by using Modified MDRD formula.Chronic kidney disease is defined as either kidney damageor GFR <60 mL/min/1.73 m2 for >3 months. CREATININE (test code = CREAT) 0.70 mg/dL 0.7-1.3 N BUN/CREATININE RATIO (test code = BUN/CREA) 7.1 10-20 L CALCIUM (test code = CA) 6.9 mg/dL 8.5-10.1 L [id number] 12:03:00* Test Item Value Reference Range Interpretation Comments GLUBED (test code = GLUBED) 178 mg/dL 74-106 H Performed by certified solder deposit operator at [facility] [id number] 11:05:00* Test Item Value Reference Range Interpretation Comments GLUBED (test code = GLUBED) 168 mg/dL 74-106 H Performed by certified solder deposit operator at [facility] BASIC METABOLIC [id number] 10:46:00* Test Item Value Reference Range Interpretation Comments SODIUM (test code = NA) 140 mmol/L 136-145 N POTASSIUM (test code = K) 3.5 mmol/L 3.5-5.1 N CHLORIDE (test code = CL) 110.0 mmol/L 98-107 H CARBON DIOXIDE (test code = CO2) 15.0 mmol/L 21-32 L ANION GAP (test code = GAP) 18.5 10-20 N GLUCOSE (test code = GLU) 160 mg/dL 74-106 H BLOOD UREA NITROGEN (test code = BUN) 7 mg/dL 7-18 N GLOMERULAR FILTRATION RATE (test code = GFR) > 60 mL/min >=60 Estimated GFR by using Modified MDRD formula.Chronic kidney disease is defined as either kidney damageor GFR <60 mL/min/1.73 m2 for >3 months. CREATININE (test code = CREAT) 0.80 mg/dL 0.7-1.3 N BUN/CREATININE RATIO (test code = BUN/CREA) 8.8 10-20 L CALCIUM (test code = CA) 8.2 mg/dL 8.5-10.1 L BASIC METABOLIC [id number] 10:42:00* Test Item Value Reference Range Interpretation Comments SODIUM (test code = NA) 140 mmol/L 136-145 N POTASSIUM (test code = K) 3.5 mmol/L 3.5-5.1 N CHLORIDE (test code = CL) 110.0 mmol/L 98-107 H CARBON DIOXIDE (test code = CO2) mmol/L 21-32 ANION GAP (test code = GAP) 10-20 GLUCOSE (test code = GLU) mg/dL 74-106 BLOOD UREA NITROGEN (test code = BUN) mg/dL 7-18 GLOMERULAR FILTRATION RATE (test code = GFR) mL/min >=60 CREATININE (test code = CREAT) mg/dL 0.7-1.3 BUN/CREATININE RATIO (test code = BUN/CREA) 10-20 CALCIUM (test code = CA) mg/dL 8.5-10.1 [id number] 10:14:00* Test Item Value Reference Range Interpretation Comments GLUBED (test code = GLUBED) 182 mg/dL 74-106 H Performed by certified solder deposit operator at [facility] [id number] 09:56:00* Test Item Value Reference Range Interpretation Comments PHOSPHORUS (test code = PHOS) 2.9 mg/dL 2.5-4.9 N [id number] 08:31:00* Test Item Value Reference Range Interpretation Comments GLUBED (test code = GLUBED) 161 mg/dL 74-106 H Performed by certified solder deposit operator at [facility] [id number] 07:52:00* Test Item Value Reference Range Interpretation Comments GLYCOSYLATED HEMOGLOBIN (HA1C) (test code = GLYHGB) 12.4 % HbA1 4. 8-6.0 H ESTIMATED AVERAGE GLUCOSE (test code = EAG) 309 MG/DL [id number] 07:19:00* Test Item Value Reference Range Interpretation Comments GLUBED (test code = GLUBED) 170 mg/dL 74-106 H Performed by certified solder deposit operator at [facility] BASIC METABOLIC [id number] 06:18:00* Test Item Value Reference Range Interpretation Comments SODIUM (test code = NA) 141 mmol/L 136-145 N POTASSIUM (test code = K) 3.1 mmol/L 3.5-5.1 L CHLORIDE (test code = CL) 110.0 mmol/L 98-107 H CARBON DIOXIDE (test code = CO2) 16.0 mmol/L 21-32 L ANION GAP (test code = GAP) 18.1 10-20 N GLUCOSE (test code = GLU) 109 mg/dL 74-106 H BLOOD UREA NITROGEN (test code = BUN) 8 mg/dL 7-18 N GLOMERULAR FILTRATION RATE (test code = GFR) > 60 mL/min >=60 Estimated GFR by using Modified MDRD formula.Chronic kidney disease is defined as either kidney damageor GFR <60 mL/min/1.73 m2 for >3 months. CREATININE (test code = CREAT) 0.90 mg/dL 0.7-1.3 N BUN/CREATININE RATIO (test code = BUN/CREA) 8.9 10-20 L CALCIUM (test code = CA) 8.2 mg/dL 8.5-10.1 L BASIC METABOLIC [id number] 06:10:00* Test Item Value Reference Range Interpretation Comments SODIUM (test code = NA) 141 mmol/L 136-145 N POTASSIUM (test code = K) 3.1 mmol/L 3.5-5.1 L CHLORIDE (test code = CL) 110.0 mmol/L 98-107 H CARBON DIOXIDE (test code = CO2) mmol/L 21-32 ANION GAP (test code = GAP) 10-20 GLUCOSE (test code = GLU) mg/dL 74-106 BLOOD UREA NITROGEN (test code = BUN) mg/dL 7-18 GLOMERULAR FILTRATION RATE (test code = GFR) mL/min >=60 CREATININE (test code = CREAT) mg/dL 0.7-1.3 BUN/CREATININE RATIO (test code = BUN/CREA) 10-20 CALCIUM (test code = CA) mg/dL 8.5-10.1 CBC W/AUTO [id number] 05:27:00* Test Item Value Reference Range Interpretation Comments WHITE BLOOD CELL (test code = WBC) 5.4 K/mm3 4.5-12.5 N RED BLOOD CELL (test code = RBC) 5.25 mill/mm3 4.0-5.8 N HEMOGLOBIN (test code = HGB) 14.0 gram/dL 13.0-17.5 N HEMATOCRIT (test code = HCT) 40.5 % 42.0-52.0 L MEAN CELL VOLUME (test code = MCV) 77.1 fL 80-98 L MEAN CELL HGB (test code = MCH) 26.7 picogram 27.0-33.0 L MEAN CELL HGB CONCETRATION (test code = MCHC) 34.6 gram/dL 33.0-36. 0 N RED CELL DISTRIBUTION WIDTH (test code = RDW) 14.1 % 11.6-16. 2 N RED CELL DISTRIBUTION WIDTH SD (test code = RDW-SD) 38.7 fL 37 .0-51.0 N PLATELET COUNT (test code = PLT) 216 K/mm3 150-450 N MEAN PLATELET VOLUME (test code = MPV) 11.0 fL 6.7-11.0 N NEUTROPHIL % (test code = NT%) 49.0 % 39.0-69.0 N IMMATURE GRANULOCYTE % (test code = IG%) 0.4 % 0.0-5.0 N LYMPHOCYTE % (test code = LY%) 38.2 % 25.0-55.0 N MONOCYTE % (test code = MO%) 8.1 % 0.0-10.0 N EOSINOPHIL % (test code = EO%) 3.7 % 0.0-5.0 N BASOPHIL % (test code = BA%) 0.6 % 0.0-1.0 N NUCLEATED RBC % (test code = NRBC%) 0.0 % 0-0 N NEUTROPHIL # (test code = NT#) 2.66 K/mm3 1.8-7.7 N IMMATURE GRANULOCYTE # (test code = IG#) 0.02 x10 3/uL 0-0.03 N LYMPHOCYTE # (test code = LY#) 2.07 K/mm3 1.0-5.0 N MONOCYTE # (test code = MO#) 0.44 K/mm3 0-0.8 N EOSINOPHIL # (test code = EO#) 0.20 K/mm3 0.0-0.5 N BASOPHIL # (test code = BA#) 0.03 K/mm3 0.0-0.2 N NUCLEATED RBC # (test code = NRBC#) 0.00 K/mm3 0.0-0.1 N MANUAL DIFF REQUIRED (test code = MDIFF) NO CBC W/AUTO [id number] 05:26:00* Test Item Value Reference Range Interpretation Comments WHITE BLOOD CELL (test code = WBC) K/mm3 4.5-12.5 RED BLOOD CELL (test code = RBC) mill/mm3 4.0-5.8 HEMOGLOBIN (test code = HGB) 14.0 gram/dL 13.0-17.5 N HEMATOCRIT (test code = HCT) % 42.0-52.0 MEAN CELL VOLUME (test code = MCV) fL 80-98 MEAN CELL HGB (test code = MCH) picogram 27.0-33.0 MEAN CELL HGB CONCETRATION (test code = MCHC) gram/dL 33.0-36. 0 RED CELL DISTRIBUTION WIDTH (test code = RDW) % 11.6-16. 2 RED CELL DISTRIBUTION WIDTH SD (test code = RDW-SD) fL 37 .0-51.0 PLATELET COUNT (test code = PLT) K/mm3 150-450 MEAN PLATELET VOLUME (test code = MPV) fL 6.7-11.0 NEUTROPHIL % (test code = NT%) % 39.0-69.0 IMMATURE GRANULOCYTE % (test code = IG%) % 0.0-5.0 LYMPHOCYTE % (test code = LY%) % 25.0-55.0 MONOCYTE % (test code = MO%) % 0.0-10.0 EOSINOPHIL % (test code = EO%) % 0.0-5.0 BASOPHIL % (test code = BA%) % 0.0-1.0 NEUTROPHIL # (test code = NT#) K/mm3 1.8-7.7 LYMPHOCYTE # (test code = LY#) K/mm3 1.0-5.0 MONOCYTE # (test code = MO#) K/mm3 0-0.8 EOSINOPHIL # (test code = EO#) K/mm3 0.0-0.5 BASOPHIL # (test code = BA#) K/mm3 0.0-0.2 [id number] 05:15:00* Test Item Value Reference Range Interpretation Comments GLUBED (test code = GLUBED) 125 mg/dL 74-106 H Performed by certified solder deposit operator at [facility] [id number] 05:15:00* Test Item Value Reference Range Interpretation Comments GLUBED (test code = GLUBED) 96 mg/dL 74-106 N Performed by certified solder deposit operator at [facility] BASIC METABOLIC [id number] 02:39:00* Test Item Value Reference Range Interpretation Comments SODIUM (test code = NA) 145 mmol/L 136-145 RESU LT VERIFIED BY REPEAT ANALYSIS POTASSIUM (test code = K) 2.9 mmol/L 3.5-5.1 L Re sults called to [id number] by [facility] 02/03/19 0238Critical results verified and read back by Nurse?Y CHLORIDE (test code = CL) 114.0 mmol/L 98-107 H CARBON DIOXIDE (test code = CO2) 16.0 mmol/L 21-32 L ANION GAP (test code = GAP) 17.9 10-20 N GLUCOSE (test code = GLU) 104 mg/dL 74-106 N BLOOD UREA NITROGEN (test code = BUN) 7 mg/dL 7-18 N GLOMERULAR FILTRATION RATE (test code = GFR) > 60 mL/min >=60 Estimated GFR by using Modified MDRD formula.Chronic kidney disease is defined as either kidney damageor GFR <60 mL/min/1.73 m2 for >3 months. CREATININE (test code = CREAT) 0.80 mg/dL 0.7-1.3 N BUN/CREATININE RATIO (test code = BUN/CREA) 8.8 10-20 L CALCIUM (test code = CA) 8.2 mg/dL 8.5-10.1 L SPECIMEN COMMENTS: Q4H while on insulin dripBASIC METABOLIC [id number] 02:20:00* Test Item Value Reference Range Interpretation Comments SODIUM (test code = NA) mmol/L 136-145 POTASSIUM (test code = K) mmol/L 3.5-5.1 CHLORIDE (test code = CL) mmol/L 98-107 CARBON DIOXIDE (test code = CO2) 16.0 mmol/L 21-32 L ANION GAP (test code = GAP) 10-20 GLUCOSE (test code = GLU) 104 mg/dL 74-106 N BLOOD UREA NITROGEN (test code = BUN) 7 mg/dL 7-18 N GLOMERULAR FILTRATION RATE (test code = GFR) > 60 mL/min >=60 Estimated GFR by using Modified MDRD formula.Chronic kidney disease is defined as either kidney damageor GFR <60 mL/min/1.73 m2 for >3 months. CREATININE (test code = CREAT) 0.80 mg/dL 0.7-1.3 N BUN/CREATININE RATIO (test code = BUN/CREA) 8.8 10-20 L CALCIUM (test code = CA) 8.2 mg/dL 8.5-10.1 L SPECIMEN COMMENTS: Q4H while on insulin [id number] 02:01:00* Test Item Value Reference Range Interpretation Comments GLUBED (test code = GLUBED) 100 mg/dL 74-106 N Performed by certified solder deposit operator at [facility] [id number] 23:49:00* Test Item Value Reference Range Interpretation Comments GLUBED (test code = GLUBED) 139 mg/dL 74-106 H Performed by certified solder deposit operator at [facility] BASIC METABOLIC [id number] 22:31:00* Test Item Value Reference Range Interpretation Comments SODIUM (test code = NA) 139 mmol/L 136-145 N POTASSIUM (test code = K) 3.4 mmol/L 3.5-5.1 L CHLORIDE (test code = CL) 110.0 mmol/L 98-107 H CARBON DIOXIDE (test code = CO2) 15.0 mmol/L 21-32 L ANION GAP (test code = GAP) 17.4 10-20 N GLUCOSE (test code = GLU) 269 mg/dL 74-106 H BLOOD UREA NITROGEN (test code = BUN) 8 mg/dL 7-18 N GLOMERULAR FILTRATION RATE (test code = GFR) > 60 mL/min >=60 Estimated GFR by using Modified MDRD formula.Chronic kidney disease is defined as either kidney damageor GFR <60 mL/min/1.73 m2 for >3 months. CREATININE (test code = CREAT) 0.90 mg/dL 0.7-1.3 N BUN/CREATININE RATIO (test code = BUN/CREA) 8.9 10-20 L CALCIUM (test code = CA) 7.8 mg/dL 8.5-10.1 L Specimen 4+ Hemolysed.Results MAY NOT be accurate due to hemolysis.MAGNESIUM 2019-02-02 22:31:00* Test Item Value Reference Range Interpretation Comments MAGNESIUM (test code = MAG) 1.8 mg/dL 1.8-2.4 N Specimen 4+ Hemolysed.Results MAY NOT be accurate due to hemolysis.BASIC METABOLIC [id number] 22:24:00* Test Item Value Reference Range Interpretation Comments SODIUM (test code = NA) 139 mmol/L 136-145 N POTASSIUM (test code = K) 3.4 mmol/L 3.5-5.1 L CHLORIDE (test code = CL) 110.0 mmol/L 98-107 H CARBON DIOXIDE (test code = CO2) mmol/L 21-32 ANION GAP (test code = GAP) 10-20 GLUCOSE (test code = GLU) mg/dL 74-106 BLOOD UREA NITROGEN (test code = BUN) mg/dL 7-18 GLOMERULAR FILTRATION RATE (test code = GFR) mL/min >=60 CREATININE (test code = CREAT) mg/dL 0.7-1.3 BUN/CREATININE RATIO (test code = BUN/CREA) 10-20 CALCIUM (test code = CA) mg/dL 8.5-10.1 Specimen 4+ Hemolysed.Results MAY NOT be accurate due to hemolysis.MAGNESIUM 2019-02-02 22:24:00* Test Item Value Reference Range Interpretation Comments MAGNESIUM (test code = MAG) mg/dL 1.8-2.4 Specimen 4+ Hemolysed.Results MAY NOT be accurate due to hemolysis.GLUBED 2019-02-02 20:49:00* Test Item Value Reference Range Interpretation Comments GLUBED (test code = GLUBED) 308 mg/dL 74-106 H Performed by certified solder deposit operator at [facility] BASIC METABOLIC [id number] 19:20:00* Test Item Value Reference Range Interpretation Comments SODIUM (test code = NA) 137 mmol/L 136-145 N POTASSIUM (test code = K) 3.9 mmol/L 3.5-5.1 N CHLORIDE (test code = CL) 106.0 mmol/L 98-107 N CARBON DIOXIDE (test code = CO2) 13.0 mmol/L 21-32 L ANION GAP (test code = GAP) 21.9 10-20 H GLUCOSE (test code = GLU) 381 mg/dL 74-106 H BLOOD UREA NITROGEN (test code = BUN) 9 mg/dL 7-18 N GLOMERULAR FILTRATION RATE (test code = GFR) > 60 mL/min >=60 Estimated GFR by using Modified MDRD formula.Chronic kidney disease is defined as either kidney damageor GFR <60 mL/min/1.73 m2 for >3 months. CREATININE (test code = CREAT) 1.10 mg/dL 0.7-1.3 N BUN/CREATININE RATIO (test code = BUN/CREA) 8.2 10-20 L CALCIUM (test code = CA) 8.2 mg/dL 8.5-10.1 L SPECIMEN COMMENTS: Q4H while on insulin dripSPECIMEN COMMENTS: Q8H while on insu sarah [id number] 19:20:00* Test Item Value Reference Range Interpretation Comments MAGNESIUM (test code = MAG) 1.9 mg/dL 1.8-2.4 N SPECIMEN COMMENTS: Q4H while on insulin dripSPECIMEN COMMENTS: Q8H while on insu sarah dripBASIC METABOLIC [id number] 19:06:00* Test Item Value Reference Range Interpretation Comments SODIUM (test code = NA) 137 mmol/L 136-145 N POTASSIUM (test code = K) 3.9 mmol/L 3.5-5.1 N CHLORIDE (test code = CL) 106.0 mmol/L 98-107 N CARBON DIOXIDE (test code = CO2) mmol/L 21-32 ANION GAP (test code = GAP) 10-20 GLUCOSE (test code = GLU) mg/dL 74-106 BLOOD UREA NITROGEN (test code = BUN) mg/dL 7-18 GLOMERULAR FILTRATION RATE (test code = GFR) mL/min >=60 CREATININE (test code = CREAT) mg/dL 0.7-1.3 BUN/CREATININE RATIO (test code = BUN/CREA) 10-20 CALCIUM (test code = CA) mg/dL 8.5-10.1 SPECIMEN COMMENTS: Q4H while on insulin dripSPECIMEN COMMENTS: Q8H while on insu sarah [id number] 19:06:00* Test Item Value Reference Range Interpretation Comments MAGNESIUM (test code = MAG) mg/dL 1.8-2.4 SPECIMEN COMMENTS: Q4H while on insulin dripSPECIMEN COMMENTS: Q8H while on insu sarah dripBASIC METABOLIC [id number] 15:01:00* Test Item Value Reference Range Interpretation Comments SODIUM (test code = NA) 134 mmol/L 136-145 L POTASSIUM (test code = K) 4.0 mmol/L 3.5-5.1 N CHLORIDE (test code = CL) 102.0 mmol/L 98-107 N CARBON DIOXIDE (test code = CO2) 14.0 mmol/L 21-32 L ANION GAP (test code = GAP) 22.0 10-20 H GLUCOSE (test code = GLU) 348 mg/dL 74-106 H BLOOD UREA NITROGEN (test code = BUN) 9 mg/dL 7-18 N GLOMERULAR FILTRATION RATE (test code = GFR) > 60 mL/min >=60 Estimated GFR by using Modified MDRD formula.Chronic kidney disease is defined as either kidney damageor GFR <60 mL/min/1.73 m2 for >3 months. CREATININE (test code = CREAT) 1.20 mg/dL 0.7-1.3 N BUN/CREATININE RATIO (test code = BUN/CREA) 7.2 10-20 L CALCIUM (test code = CA) 9.3 mg/dL 8.5-10.1 N HEPATIC FUNCTION [id number] 15:01:00* Test Item Value Reference Range Interpretation Comments TOTAL PROTEIN (test code = PROT) 8.1 gram/dL 6.4-8.2 N ALBUMIN (test code = ALB) 3.8 g/dL 3.4-5.0 N GLOBULIN (test code = GLOB) 4.3 gram/dL 2.7-4.2 H ALBUMIN/GLOBULIN RATIO (test code = A/G) 0.9 0.75-1.50 N BILIRUBIN TOTAL (test code = BILT) 0.70 mg/dL 0.0-1.0 N BILIRUBIN DIRECT (test code = BILD) 0.19 mg/dL 0.0-0.20 N SGOT/AST (test code = AST) 33 IUnit/L 15-37 N SGPT/ALT (test code = ALT) 58 IUnit/L 12-78 N ALKALINE PHOSPHATASE TOTAL (test code = ALKP) 116 IUnit/L 45-117 N Note change in reference range due to change in reagent. [id number] 15:01:00* Test Item Value Reference Range Interpretation Comments LIPASE (test code = LIP) 218 U/L 73.0-393.0 N [id number] 15:01:00* Test Item Value Reference Range Interpretation Comments MAGNESIUM (test code = MAG) 2.0 mg/dL 1.8-2.4 N [id number] 15:01:00* Test Item Value Reference Range Interpretation Comments TROPONIN-I (test code = TROPI) <0.015 ng/mL 0-0.045 N BASIC METABOLIC [id number] 14:51:00* Test Item Value Reference Range Interpretation Comments SODIUM (test code = NA) 134 mmol/L 136-145 L POTASSIUM (test code = K) 4.0 mmol/L 3.5-5.1 N CHLORIDE (test code = CL) 102.0 mmol/L 98-107 N CARBON DIOXIDE (test code = CO2) mmol/L 21-32 ANION GAP (test code = GAP) 10-20 GLUCOSE (test code = GLU) mg/dL 74-106 BLOOD UREA NITROGEN (test code = BUN) mg/dL 7-18 GLOMERULAR FILTRATION RATE (test code = GFR) mL/min >=60 CREATININE (test code = CREAT) mg/dL 0.7-1.3 BUN/CREATININE RATIO (test code = BUN/CREA) 10-20 CALCIUM (test code = CA) mg/dL 8.5-10.1 HEPATIC FUNCTION [id number] 14:51:00* Test Item Value Reference Range Interpretation Comments TOTAL PROTEIN (test code = PROT) gram/dL 6.4-8.2 ALBUMIN (test code = ALB) g/dL 3.4-5.0 GLOBULIN (test code = GLOB) gram/dL 2.7-4.2 ALBUMIN/GLOBULIN RATIO (test code = A/G) 0.75-1.50 BILIRUBIN TOTAL (test code = BILT) mg/dL 0.0-1.0 BILIRUBIN DIRECT (test code = BILD) mg/dL 0.0-0.20 SGOT/AST (test code = AST) IUnit/L 15-37 SGPT/ALT (test code = ALT) IUnit/L 12-78 ALKALINE PHOSPHATASE TOTAL (test code = ALKP) IUnit/L 45-117 [id number] 14:51:00* Test Item Value Reference Range Interpretation Comments LIPASE (test code = LIP) U/L 73.0-393.0 [id number] 14:51:00* Test Item Value Reference Range Interpretation Comments MAGNESIUM (test code = MAG) mg/dL 1.8-2.4 [id number] 14:51:00* Test Item Value Reference Range Interpretation Comments TROPONIN-I (test code = TROPI) ng/mL 0-0.045 CBC W/O [id number] 14:24:00* Test Item Value Reference Range Interpretation Comments WHITE BLOOD CELL (test code = WBC) 5.7 K/mm3 4.5-12.5 N RED BLOOD CELL (test code = RBC) 5.91 mill/mm3 4.0-5.8 H HEMOGLOBIN (test code = HGB) 15.7 gram/dL 13.0-17.5 N HEMATOCRIT (test code = HCT) 46.2 % 42.0-52.0 N MEAN CELL VOLUME (test code = MCV) 78.2 fL 80-98 L MEAN CELL HGB (test code = MCH) 26.6 picogram 27.0-33.0 L MEAN CELL HGB CONCETRATION (test code = MCHC) 34.0 gram/dL 33.0-36. 0 N RED CELL DISTRIBUTION WIDTH (test code = RDW) 14.2 % 11.6-16. 2 N PLATELET COUNT (test code = PLT) 245 K/mm3 150-450 N MEAN PLATELET VOLUME (test code = MPV) 10.6 fL 6.7-11.0 N CBC W/O [id number] 14:20:00* Test Item Value Reference Range Interpretation Comments WHITE BLOOD CELL (test code = WBC) K/mm3 4.5-12.5 RED BLOOD CELL (test code = RBC) mill/mm3 4.0-5.8 HEMOGLOBIN (test code = HGB) 15.7 gram/dL 13.0-17.5 N HEMATOCRIT (test code = HCT) 46.2 % 42.0-52.0 N MEAN CELL VOLUME (test code = MCV) fL 80-98 MEAN CELL HGB (test code = MCH) picogram 27.0-33.0 MEAN CELL HGB CONCETRATION (test code = MCHC) gram/dL 33.0-36. 0 RED CELL DISTRIBUTION WIDTH (test code = RDW) % 11.6-16. 2 PLATELET COUNT (test code = PLT) K/mm3 150-450 MEAN PLATELET VOLUME (test code = MPV) fL 6.7-11.0 URINALYSIS [id number] 14:20:00* Test Item Value Reference Range Interpretation Comments UA COLOR (test code = COLU) Light-Yellow YELLOW UA APPEARANCE (test code = APPU) CLEAR CLEAR UA GLUCOSE DIPSTICK (test code = DGLUU) >1000 (4+) mg/dL NEGATIVE UA BILIRUBIN DIPSTICK (test code = BILU) NEGATIVE mg/dL NEGATIVE UA KETONE DIPSTICK (test code = KETU) >150 (4+) mg/dL NEGATIVE A UA SPECIFIC GRAVITY (test code = SGU) 1.039 1.001-1.035 UA BLOOD DIPSTICK (test code = TERRELL) Negative mg/dL NEGATIVE UA PH DIPSTICK (test code = DARLENE) 6.0 5.0-8.0 UA PROTEIN DIPSTICK (test code = PROU) 70 (1+) mg/dL NEGATIVE A UA UROBILINIOGEN DIPSTICK (test code = URO) Normal mg/dL NEGATIVE UA NITRITE DIPSTICK (test code = YOAV) NEGATIVE NEGATIVE UA LEUKOCYTE ESTERASE W REFLEX (test code = LEUUR) NEGATIVE Leilani/uL NEGATIVE UA WBC (test code = WBCU) 0-5 per HPF 0-5 UA RBC (test code = RBCU) 0-2 #/HPF 0-5 UA EPITHELIAL CELLS (test code = EPIU) Few (2-5/hpf) per HPF FEW UA BACTERIA (test code = BACU) FEW #/HPF NONE A UA HYALINE CAST (test code = HYALU) 3-5 #/LPF 0-5 UA MUCUS (test code = MUCU) FEW #/LPF FEW Urine Source? Clean Catch- XR CHEST 1 [id number] 14:13:00 FAX: Jihan Champion MD [phone] [place]: St: [facility] FAX: Claudio Rodrigues MD Name: SHARON DIAZ [facility] : 2000 Age/S: 18/M [address] [facility] Unit #: [id number] Loc: [place] [address] Phys: Claudio Rodrigues MD Acct: [id number] Dis Date: Status: REG ER PHONE #: [phone] Exam Date: 02/02/2019 1340 FAX #: [phone] Reason: ABDOMINAL PAIN EXAMS: CPT CODE: [id number] XR CHEST 1 V [id number] REASON FOR EXAM: ABDOMINAL PAIN Exam Order Date: 02/02/2019 1:14 PM Ordering M.DJanice: Claudio Rodrigues MD PROCEDURE: - XR CHEST 1 V COMPARISON: Frontal chest x-ray Sept 2009 FINDINGS: The lungs are clear. There is no pleural effusion or pneumothorax. Pulmonary vascularity is within normal limits. Cardiomediastinal silhouette is normal in size for techniq ue. The mediastinal contours are within normal limits. Muscu loskeletal structures are within normal limits. The visualized upp er abdomen is within normal limits. IMPRESSION: No acute cardiopulmonary process. at 1413 Reported and signed by: Surjit Arriaza MD CC: Jihan Wise; Claudio Rodrigues MD Technologist: Re Garza; STUDENT TECHNOLOGIST Trnscrd Date/Time/By: 02/02/2019 (7489) : By: [id number] [facility] Print D/T: S: (3193) PAGE 1 Signed Rep ort [id number] 07:25:00* Test Item Value Reference Range Interpretation Comments GLUBED (test code = GLUBED) 223 mg/dL 74-106 H Performed by certified solder deposit operator at [facility] [id number] 20:49:00* Test Item Value Reference Range Interpretation Comments GLUBED (test code = GLUBED) 252 mg/dL 74-106 H Performed by certified solder deposit operator at [facility] [id number] 15:58:00* Test Item Value Reference Range Interpretation Comments GLUBED (test code = GLUBED) 235 mg/dL 74-106 H Performed by certified solder deposit operator at [facility] [id number] 11:06:00* Test Item Value Reference Range Interpretation Comments GLUBED (test code = GLUBED) 228 mg/dL 74-106 H Performed by certified solder deposit operator at [facility] BASIC METABOLIC [id number] 06:20:00* Test Item Value Reference Range Interpretation Comments SODIUM (test code = NA) 140 mmol/L 136-145 RESU LT VERIFIED BY REPEAT ANALYSIS POTASSIUM (test code = K) 3.5 mmol/L 3.5-5.1 N CHLORIDE (test code = CL) 107.0 mmol/L 98-107 N CARBON DIOXIDE (test code = CO2) 19.0 mmol/L 21-32 L ANION GAP (test code = GAP) 17.5 10-20 N GLUCOSE (test code = GLU) 291 mg/dL 74-106 H BLOOD UREA NITROGEN (test code = BUN) 11 mg/dL 7-18 N GLOMERULAR FILTRATION RATE (test code = GFR) > 60 mL/min >=60 Estimated GFR by using Modified MDRD formula.Chronic kidney disease is defined as either kidney damageor GFR <60 mL/min/1.73 m2 for >3 months. CREATININE (test code = CREAT) 0.80 mg/dL 0.7-1.3 N BUN/CREATININE RATIO (test code = BUN/CREA) 13.8 10-20 N CALCIUM (test code = CA) 8.4 mg/dL 8.5-10.1 L CBC W/AUTO [id number] 06:01:00* Test Item Value Reference Range Interpretation Comments WHITE BLOOD CELL (test code = WBC) 6.3 K/mm3 4.5-12.5 N RED BLOOD CELL (test code = RBC) 5.15 mill/mm3 4.0-5.8 N HEMOGLOBIN (test code = HGB) 13.7 gram/dL 13.0-17.5 N HEMATOCRIT (test code = HCT) 40.6 % 42.0-52.0 L MEAN CELL VOLUME (test code = MCV) 78.8 fL 80-98 L MEAN CELL HGB (test code = MCH) 26.6 picogram 27.0-33.0 L MEAN CELL HGB CONCETRATION (test code = MCHC) 33.7 gram/dL 33.0-36. 0 N RED CELL DISTRIBUTION WIDTH (test code = RDW) 12.4 % 11.6-16. 2 N RED CELL DISTRIBUTION WIDTH SD (test code = RDW-SD) 35.5 fL 37 .0-51.0 L PLATELET COUNT (test code = PLT) 218 K/mm3 150-450 RESULT VERIFIED BY REPEAT ANALYSIS MEAN PLATELET VOLUME (test code = MPV) 11.4 fL 6.7-11.0 H NEUTROPHIL % (test code = NT%) 55.9 % 39.0-69.0 N IMMATURE GRANULOCYTE % (test code = IG%) 0.3 % 0.0-5.0 N LYMPHOCYTE % (test code = LY%) 34.4 % 25.0-55.0 N MONOCYTE % (test code = MO%) 4.6 % 0.0-10.0 N EOSINOPHIL % (test code = EO%) 4.5 % 0.0-5.0 N BASOPHIL % (test code = BA%) 0.3 % 0.0-1.0 N NUCLEATED RBC % (test code = NRBC%) 0.0 % 0-0 N NEUTROPHIL # (test code = NT#) 3.49 K/mm3 1.8-7.7 N IMMATURE GRANULOCYTE # (test code = IG#) 0.02 x10 3/uL 0-0.03 N LYMPHOCYTE # (test code = LY#) 2.15 K/mm3 1.0-5.0 N MONOCYTE # (test code = MO#) 0.29 K/mm3 0-0.8 N EOSINOPHIL # (test code = EO#) 0.28 K/mm3 0.0-0.5 N BASOPHIL # (test code = BA#) 0.02 K/mm3 0.0-0.2 N NUCLEATED RBC # (test code = NRBC#) 0.00 K/mm3 0.0-0.1 N MANUAL DIFF REQUIRED (test code = MDIFF) NO [id number] 20:45:00* Test Item Value Reference Range Interpretation Comments GLUBED (test code = GLUBED) 316 mg/dL 74-106 H Performed by certified solder deposit operator at [facility] BASIC METABOLIC [id number] 19:05:00* Test Item Value Reference Range Interpretation Comments SODIUM (test code = NA) 135 mmol/L 136-145 L RESU LT VERIFIED BY REPEAT ANALYSIS POTASSIUM (test code = K) 3.4 mmol/L 3.5-5.1 L CHLORIDE (test code = CL) 103.0 mmol/L 98-107 N CARBON DIOXIDE (test code = CO2) 20.0 mmol/L 21-32 L ANION GAP (test code = GAP) 15.4 10-20 N GLUCOSE (test code = GLU) 400 mg/dL 74-106 H BLOOD UREA NITROGEN (test code = BUN) 11 mg/dL 7-18 N GLOMERULAR FILTRATION RATE (test code = GFR) > 60 mL/min >=60 Estimated GFR by using Modified MDRD formula.Chronic kidney disease is defined as either kidney damageor GFR <60 mL/min/1.73 m2 for >3 months. CREATININE (test code = CREAT) 1.00 mg/dL 0.7-1.3 N BUN/CREATININE RATIO (test code = BUN/CREA) 11.0 10-20 N CALCIUM (test code = CA) 8.0 mg/dL 8.5-10.1 L FE W/TOTAL IRON BINDING CAP.[id number] 19:01:00* Test Item Value Reference Range Interpretation Comments SERUM IRON (test code = IRON) 63 ug/dL 50-175 N TOTAL IRON BINDING CAPACITY (test code = TIBC) 224 mcg/dL 250-450 L IRON SATURATION (test code = FESAT) 28.13 % 13-45 N [id number] 19:01:00* Test Item Value Reference Range Interpretation Comments FERRITIN (test code = SHREYA) 745 ng/mL 8-388 H T4 [id number] 17:16:00* Test Item Value Reference Range Interpretation Comments T4 FREE (test code = T4F) 1.13 ng/dL 0.76-1.46 N THYROID STIMULATING [id number] 17:16:00* Test Item Value Reference Range Interpretation Comments THYROID STIMULATING HORMONE (test code = TSH) 7.070 uIU/mL 0.36-3.7 4 H TSH REFERENCE RANGES: EUTHYROID: 0.35 - 4.3 mIU/mL HYPO : > 5.5 mIU/mL HYPER : < 0.35 mIU/mL [id number] 16:45:00* Test Item Value Reference Range Interpretation Comments GLUBED (test code = GLUBED) 278 mg/dL 74-106 H Performed by certified solder deposit operator at [facility] [id number] 12:26:00* Test Item Value Reference Range Interpretation Comments GLUBED (test code = GLUBED) 92 mg/dL 74-106 N Performed by certified solder deposit operator at [facility] BASIC METABOLIC [id number] 11:51:00* Test Item Value Reference Range Interpretation Comments SODIUM (test code = NA) 146 mmol/L 136-145 H RESU LT VERIFIED BY REPEAT ANALYSIS POTASSIUM (test code = K) 3.9 mmol/L 3.5-5.1 N CHLORIDE (test code = CL) 115.0 mmol/L 98-107 H CARBON DIOXIDE (test code = CO2) 17.0 mmol/L 21-32 L ANION GAP (test code = GAP) 17.9 10-20 N GLUCOSE (test code = GLU) 113 mg/dL 74-106 H BLOOD UREA NITROGEN (test code = BUN) 11 mg/dL 7-18 N GLOMERULAR FILTRATION RATE (test code = GFR) > 60 mL/min >=60 Estimated GFR by using Modified MDRD formula.Chronic kidney disease is defined as either kidney damageor GFR <60 mL/min/1.73 m2 for >3 months. CREATININE (test code = CREAT) 0.80 mg/dL 0.7-1.3 N BUN/CREATININE RATIO (test code = BUN/CREA) 13.8 10-20 N CALCIUM (test code = CA) 8.2 mg/dL 8.5-10.1 L SPECIMEN COMMENTS: Q4H while on insulin dripBASIC METABOLIC [id number] 11:48:00* Test Item Value Reference Range Interpretation Comments SODIUM (test code = NA) 146 mmol/L 136-145 H RESU LT VERIFIED BY REPEAT ANALYSIS POTASSIUM (test code = K) 3.9 mmol/L 3.5-5.1 N CHLORIDE (test code = CL) 115.0 mmol/L 98-107 H CARBON DIOXIDE (test code = CO2) mmol/L 21-32 ANION GAP (test code = GAP) mmol/L 10-20 GLUCOSE (test code = GLU) mg/dL 74-106 BLOOD UREA NITROGEN (test code = BUN) mg/dL 3-21 GLOMERULAR FILTRATION RATE (test code = GFR) mL/min >=60 CREATININE (test code = CREAT) mg/dL 0.55-1.3 BUN/CREATININE RATIO (test code = BUN/CREA) 10-20 CALCIUM (test code = CA) 8.2 mg/dL 8.5-10.1 L SPECIMEN COMMENTS: Q4H while on insulin dripLACTIC [id number] 11:29:00* Test Item Value Reference Range Interpretation Comments LACTIC ACID (test code = LACT) 0.6 mmol/L 0.4-1.9 N [id number] 11:07:00* Test Item Value Reference Range Interpretation Comments GLUBED (test code = GLUBED) 103 mg/dL 74-106 N Performed by certified solder deposit operator at [facility] VENOUS BLOOD [id number] 09:58:00* Test Item Value Reference Range Interpretation Comments VENOUS BLOOD GAS PH (test code = PHV) 7.26 7.30-7.40 L VENOUS BLOOD GAS PCO2 (test code = PCO2V) 37.4 mm Hg 39.0-51.0 L VENOUS BLOOD GAS PO2 (test code = PO2V) 52.8 mm Hg 30.0-50.0 H VBG HCO3 (test code = HCO3V) 16.4 mmol/L 17.0-30.0 L VBG BASE EXCESS (test code = BENTLEY) -9.8 mmol/L -5.0-5.0 LL Results called to and read back by cat 09:22 - 01/05/2019; by yi rt VENOUS BLOOD GAS O2 SAT. (test code = O2SATV) 87 % 94-98 L VENOUS BLOOD GAS FIO2 (test code = FIO2V) 21.0 PT. HGB (test code = PHGBVBG) 15.4 gram/dL 13.0-17.5 N VENOUS BLOOD GAS SITE (test code = SITEV) OT HEMATOCRIT (test code = HCT/VBG) 45 % 42-52 N HGB O2 SAT (test code = HBOSAT) 86.4 % 94.00-98.00 L CARBOXYHEMOGLOBIN (test code = HOHGBT) 0.5 %totalHg 0.5-1.5 N METHEMOGLOBIN (test code = METHGB) 0.4 % 0.0-1.50 N [id number] 09:38:00* Test Item Value Reference Range Interpretation Comments GLUBED (test code = GLUBED) 141 mg/dL 74-106 H Performed by certified solder deposit operator at [facility] LIPID PROFILE (CORONARY RISK)2019-01-05 06:47:00* Test Item Value Reference Range Interpretation Comments TRIGLYCERIDES (test code = TRIG) 373 mg/dL 20-150 H CHOLESTEROL (test code = CHOL) 235 mg/dL 0-200 H CHOLESTEROL/HDL RATIO (test code = CHOLHDL) 8.0 RATIO 0-4.9 H RISK ASSOCIATED WITH CHOL/HDL RATIOS: Risk Male Female1/2 AVERAGE 3.43 3.27AVERAGE 4.97 4.442X AVERAGE 9.55 7.053X AVERAGE 23.39 11.04 REFERENCE VALUE IS RELATED TO RISK LEVELS ASRECOMMENDED BY THE [facility]. HEART, LUNG, AND BLOOD INST. HDL CHOLESTEROL (test code = HDL) 27 mg/dL 40-60 L LIPOPROTEIN LDL (test code = LDL) 160 mg/dL 100-129 H RN PERSONNEL, CONTACT PHYSICIAN IMMEDIATELY IF THIS IS A STROKE, AMI OR CAROTID STENOSIS PATIENT WHEN THE LDL >100 (1ST OCCURENCE, THIS ADMISSION) Reference Interval: mg/dL mmol/L Optimal <100 <2.6Near/above optimal 100-129 2.6- 3.3Borderline High 130-159 3.4-4.1High 160-189 4.1-4.9Very High >=190 >=4.9========= This LDL result is a direct measurement.========= [id number] 06:36:00* Test Item Value Reference Range Interpretation Comments GLUBED (test code = GLUBED) 269 mg/dL 74-106 H Performed by certified solder deposit operator at [facility] [id number] 06:35:00* Test Item Value Reference Range Interpretation Comments GLYCOSYLATED HEMOGLOBIN (HA1C) (test code = GLYHGB) 11.1 % HbA1 4. 8-6.0 H ESTIMATED AVERAGE GLUCOSE (test code = EAG) 272 MG/DL [id number] 06:31:00* Test Item Value Reference Range Interpretation Comments LIPASE (test code = LIP) 186 U/L 73.0-393.0 N BASIC METABOLIC [id number] 06:30:00* Test Item Value Reference Range Interpretation Comments SODIUM (test code = NA) 139 mmol/L 136-145 N POTASSIUM (test code = K) 4.2 mmol/L 3.5-5.1 N CHLORIDE (test code = CL) 105.0 mmol/L 98-107 N CARBON DIOXIDE (test code = CO2) 16.0 mmol/L 21-32 L ANION GAP (test code = GAP) 22.2 10-20 H GLUCOSE (test code = GLU) 337 mg/dL 74-106 H BLOOD UREA NITROGEN (test code = BUN) 14 mg/dL 7-18 N GLOMERULAR FILTRATION RATE (test code = GFR) > 60 mL/min >=60 Estimated GFR by using Modified MDRD formula.Chronic kidney disease is defined as either kidney damageor GFR <60 mL/min/1.73 m2 for >3 months. CREATININE (test code = CREAT) 1.00 mg/dL 0.7-1.3 N BUN/CREATININE RATIO (test code = BUN/CREA) 14.0 10-20 N CALCIUM (test code = CA) 8.6 mg/dL 8.5-10.1 N BASIC METABOLIC [id number] 06:24:00* Test Item Value Reference Range Interpretation Comments SODIUM (test code = NA) 139 mmol/L 136-145 N POTASSIUM (test code = K) 4.2 mmol/L 3.5-5.1 N CHLORIDE (test code = CL) 105.0 mmol/L 98-107 N CARBON DIOXIDE (test code = CO2) mmol/L 21-32 ANION GAP (test code = GAP) 10-20 GLUCOSE (test code = GLU) mg/dL 74-106 BLOOD UREA NITROGEN (test code = BUN) mg/dL 7-18 GLOMERULAR FILTRATION RATE (test code = GFR) mL/min >=60 CREATININE (test code = CREAT) mg/dL 0.7-1.3 BUN/CREATININE RATIO (test code = BUN/CREA) 10-20 CALCIUM (test code = CA) mg/dL 8.5-10.1 CBC W/O [id number] 05:51:00* Test Item Value Reference Range Interpretation Comments WHITE BLOOD CELL (test code = WBC) 9.7 K/mm3 4.5-12.5 N RED BLOOD CELL (test code = RBC) 5.70 mill/mm3 4.0-5.8 N HEMOGLOBIN (test code = HGB) 15.1 gram/dL 13.0-17.5 N HEMATOCRIT (test code = HCT) 45.0 % 42.0-52.0 N MEAN CELL VOLUME (test code = MCV) 78.9 fL 80-98 L MEAN CELL HGB (test code = MCH) 26.5 picogram 27.0-33.0 L MEAN CELL HGB CONCETRATION (test code = MCHC) 33.6 gram/dL 33.0-36. 0 N RED CELL DISTRIBUTION WIDTH (test code = RDW) 12.4 % 11.6-16. 2 N PLATELET COUNT (test code = PLT) 274 K/mm3 150-450 N MEAN PLATELET VOLUME (test code = MPV) 11.3 fL 6.7-11.0 H CBC W/O [id number] 05:47:00* Test Item Value Reference Range Interpretation Comments WHITE BLOOD CELL (test code = WBC) K/mm3 4.5-12.5 RED BLOOD CELL (test code = RBC) mill/mm3 4.0-5.8 HEMOGLOBIN (test code = HGB) 15.1 gram/dL 13.0-17.5 N HEMATOCRIT (test code = HCT) 45.0 % 42.0-52.0 N MEAN CELL VOLUME (test code = MCV) fL 80-98 MEAN CELL HGB (test code = MCH) picogram 27.0-33.0 MEAN CELL HGB CONCETRATION (test code = MCHC) gram/dL 33.0-36. 0 RED CELL DISTRIBUTION WIDTH (test code = RDW) % 11.6-16. 2 PLATELET COUNT (test code = PLT) K/mm3 150-450 MEAN PLATELET VOLUME (test code = MPV) fL 6.7-11.0 [id number] 05:27:00* Test Item Value Reference Range Interpretation Comments GLUBED (test code = GLUBED) 301 mg/dL 74-106 H Performed by certified solder deposit operator at [facility] [id number] 04:39:00* Test Item Value Reference Range Interpretation Comments GLUBED (test code = GLUBED) 332 mg/dL 74-106 H Performed by certified solder deposit operator at [facility] BASIC METABOLIC [id number] 03:25:00* Test Item Value Reference Range Interpretation Comments SODIUM (test code = NA) 136 mmol/L 136-145 POTASSIUM (test code = K) 4.0 mmol/L 3.5-5.1 N CHLORIDE (test code = CL) 99 mmol/L 101-109 L CARBON DIOXIDE (test code = CO2) 17.0 mmol/L 21-32 L ANION GAP (test code = GAP) 24 mmol/L 10-20 H GLUCOSE (test code = GLU) 370 mg/dL 74-106 H BLOOD UREA NITROGEN (test code = BUN) 14 mg/dL 3-21 N GLOMERULAR FILTRATION RATE (test code = GFR) > 60 mL/min >=60 Estimated GFR by using Modified MDRD formula.Chronic kidney disease is defined as either kidney damageor GFR <60 mL/min/1.73 m2 for >3 months. CREATININE (test code = CREAT) 1.26 mg/dL 0.55-1.3 N BUN/CREATININE RATIO (test code = BUN/CREA) 11.1 10-20 N CALCIUM (test code = CA) 8.2 mg/dL 8.4-10.2 L SPECIMEN COMMENTS: Q4H while on insulin dripSPECIMEN COMMENTS: Q8H while on insu sarah [id number] 03:25:00* Test Item Value Reference Range Interpretation Comments MAGNESIUM (test code = MAG) 1.9 mg/dL 1.6-2.3 N SPECIMEN COMMENTS: Q4H while on insulin dripSPECIMEN COMMENTS: Q8H while on insu sarah [id number] 00:38:00* Test Item Value Reference Range Interpretation Comments GLUBED (test code = GLUBED) > 500 mg/dL 74-106 HH Performed by certified solder deposit operator at [facility] URINALYSIS [id number] 23:35:00* Test Item Value Reference Range Interpretation Comments UA COLOR (test code = COLU) STRAW YELLOW UA APPEARANCE (test code = APPU) CLEAR CLEAR UA GLUCOSE DIPSTICK (test code = DGLUU) 1000 (3+) mg/dL NEGATIVE A UA BILIRUBIN DIPSTICK (test code = BILU) NEGATIVE mg/dL NEGATIVE UA KETONE DIPSTICK (test code = KETU) 150 (4+) mg/dL NEGATIVE A UA SPECIFIC GRAVITY (test code = SGU) 1.010 1.001-1.035 UA BLOOD DIPSTICK (test code = TERRELL) 10 (Trace) Sahil/uL NEGATIVE A UA PH DIPSTICK (test code = DARLENE) 5.0 5.0-8.0 UA PROTEIN DIPSTICK (test code = PROU) 15 (TRACE) mg/dL Neg-15 A UA UROBILINIOGEN DIPSTICK (test code = URO) norm mg/dL 0.0-0.2 UA NITRITE DIPSTICK (test code = YOAV) NEGATIVE NEGATIVE UA LEUKOCYTE ESTERASE DIPSTICK (test code = LEUU) NEGATIVE uL NEGA TIVE UA WBC (test code = WBCU) 0-5 per HPF 0-5 UA RBC (test code = RBCU) 0-2 per HPF 0-5 UA EPITHELIAL CELLS (test code = EPIU) None seen per HPF Few UA BACTERIA (test code = BACU) NONE SEEN per HPF NONE URINALYSIS W/O [id number] 23:35:00* Test Item Value Reference Range Interpretation Comments UA LEUKOCYTE ESTERASE W REFLEX (test code = LEUUR) NEGATIVE NEG ATIVE ACETONE [id number] 23:32:00* Test Item Value Reference Range Interpretation Comments ACETONE BLOOD (test code = ACETB) LARGE (80-100 mg/dL) NEGATIVE [id number] 23:20:00* Test Item Value Reference Range Interpretation Comments GLUBED (test code = GLUBED) > 500 mg/dL 74-106 HH Performed by certified solder deposit operator at [facility] URINALYSIS [id number] 23:18:00* Test Item Value Reference Range Interpretation Comments UA COLOR (test code = COLU) STRAW YELLOW UA APPEARANCE (test code = APPU) CLEAR CLEAR UA GLUCOSE DIPSTICK (test code = DGLUU) 1000 (3+) mg/dL NEGATIVE A UA BILIRUBIN DIPSTICK (test code = BILU) NEGATIVE mg/dL NEGATIVE UA KETONE DIPSTICK (test code = KETU) 150 (4+) mg/dL NEGATIVE A UA SPECIFIC GRAVITY (test code = SGU) 1.010 1.001-1.035 UA BLOOD DIPSTICK (test code = TERRELL) 10 (Trace) Sahil/uL NEGATIVE A UA PH DIPSTICK (test code = DARLENE) 5.0 5.0-8.0 UA PROTEIN DIPSTICK (test code = PROU) 15 (TRACE) mg/dL Neg-15 A UA UROBILINIOGEN DIPSTICK (test code = URO) norm mg/dL 0.0-0.2 UA NITRITE DIPSTICK (test code = YOAV) NEGATIVE NEGATIVE UA LEUKOCYTE ESTERASE DIPSTICK (test code = LEUU) uL NEGA TIVE UA WBC (test code = WBCU) per HPF 0-5 UA RBC (test code = RBCU) per HPF 0-5 UA EPITHELIAL CELLS (test code = EPIU) per HPF Few UA BACTERIA (test code = BACU) per HPF NONE URINALYSIS W/O [id number] 23:18:00* Test Item Value Reference Range Interpretation Comments UA LEUKOCYTE ESTERASE W REFLEX (test code = LEUUR) NEG ATIVE URINALYSIS [id number] 23:18:00* Test Item Value Reference Range Interpretation Comments UA COLOR (test code = COLU) STRAW YELLOW UA APPEARANCE (test code = APPU) CLEAR CLEAR UA GLUCOSE DIPSTICK (test code = DGLUU) 1000 (3+) mg/dL NEGATIVE A UA BILIRUBIN DIPSTICK (test code = BILU) NEGATIVE mg/dL NEGATIVE UA KETONE DIPSTICK (test code = KETU) 150 (4+) mg/dL NEGATIVE A UA SPECIFIC GRAVITY (test code = SGU) 1.010 1.001-1.035 UA BLOOD DIPSTICK (test code = TERRELL) 10 (Trace) Sahil/uL NEGATIVE A UA PH DIPSTICK (test code = DARLENE) 5.0 5.0-8.0 UA PROTEIN DIPSTICK (test code = PROU) 15 (TRACE) mg/dL Neg-15 A UA UROBILINIOGEN DIPSTICK (test code = URO) norm mg/dL 0.0-0.2 UA NITRITE DIPSTICK (test code = YOAV) NEGATIVE NEGATIVE UA LEUKOCYTE ESTERASE DIPSTICK (test code = LEUU) uL NEGA TIVE UA WBC (test code = WBCU) per HPF 0-5 UA RBC (test code = RBCU) per HPF 0-5 UA EPITHELIAL CELLS (test code = EPIU) per HPF Few UA BACTERIA (test code = BACU) per HPF NONE URINALYSIS W/O [id number] 23:18:00* Test Item Value Reference Range Interpretation Comments UA LEUKOCYTE ESTERASE W REFLEX (test code = LEUUR) NEG ATIVE COMPREHENSIVE METABOLIC [id number] 23:16:00* Test Item Value Reference Range Interpretation Comments SODIUM (test code = NA) 125 mmol/L 136-145 L POTASSIUM (test code = K) 4.6 mmol/L 3.5-5.1 N CHLORIDE (test code = CL) 89 mmol/L 101-109 L CARBON DIOXIDE (test code = CO2) 13.9 mmol/L 21-32 L ANION GAP (test code = GAP) 27 mmol/L 10-20 H GLUCOSE (test code = GLU) 820 mg/dL 74-106 Re sults called to [email or web address] 01/04/19 2313Critical results verified and read back by Nurse? Y BLOOD UREA NITROGEN (test code = BUN) 17 mg/dL 3-21 N CREATININE (test code = CREAT) 1.37 mg/dL 0.55-1.3 H BUN/CREATININE RATIO (test code = BUN/CREA) 12.4 10-20 N TOTAL PROTEIN (test code = PROT) 8.6 g/dL 6.5-8.4 H ALBUMIN (test code = ALB) 4.2 g/dL 3.4-4.8 N GLOBULIN (test code = GLOB) 4.4 G/DL 1-10 N ALBUMIN/GLOBULIN RATIO (test code = A/G) 0.95 RATIO 0.75-1.50 N CALCIUM (test code = CA) 8.6 mg/dL 8.4-10.2 N BILIRUBIN TOTAL (test code = BILT) 0.90 mg/dL 0.0-1.0 N SGOT/AST (test code = AST) 126 U/L 6-32 H SGPT/ALT (test code = ALT) 173 U/L 12-78 H N ote: Change in REFERENCE RANGE due to new reagent method. ALKALINE PHOSPHATASE TOTAL (test code = ALKP) 126 U/L 38-126 N CREATINE KINASE (CK)2019-01-04 23:16:00* Test Item Value Reference Range Interpretation Comments CREATINE KINASE (CK) (test code = CK) 113 U/L 39-308 N COMPREHENSIVE METABOLIC [id number] 23:13:00* Test Item Value Reference Range Interpretation Comments SODIUM (test code = NA) 125 mmol/L 136-145 L POTASSIUM (test code = K) 4.6 mmol/L 3.5-5.1 N CHLORIDE (test code = CL) 89 mmol/L 101-109 L CARBON DIOXIDE (test code = CO2) 13.9 mmol/L 21-32 L ANION GAP (test code = GAP) 27 mmol/L 10-20 H GLUCOSE (test code = GLU) 820 mg/dL 74-106 Re sults called to RL [facility] 01/04/19 2313Critical results verified and read back by Nurse? Y BLOOD UREA NITROGEN (test code = BUN) 17 mg/dL 3-21 N CREATININE (test code = CREAT) 1.37 mg/dL 0.55-1.3 H BUN/CREATININE RATIO (test code = BUN/CREA) 12.4 10-20 N TOTAL PROTEIN (test code = PROT) gram/dL 6.4-8.2 ALBUMIN (test code = ALB) g/dL 3.4-5.0 GLOBULIN (test code = GLOB) g/dL 2.7-4.2 ALBUMIN/GLOBULIN RATIO (test code = A/G) 0.75-1.50 CALCIUM (test code = CA) 8.6 mg/dL 8.4-10.2 N BILIRUBIN TOTAL (test code = BILT) mg/dL 0.2-1.2 SGOT/AST (test code = AST) IUnit/L 15-37 SGPT/ALT (test code = ALT) U/L 10-69 ALKALINE PHOSPHATASE TOTAL (test code = ALKP) IUnit/L 45-117 CREATINE KINASE (CK)2019-01-04 23:13:00* Test Item Value Reference Range Interpretation Comments CREATINE KINASE (CK) (test code = CK) IUnit/L 26-208 CBC W/AUTO [id number] 23:04:00* Test Item Value Reference Range Interpretation Comments WHITE BLOOD CELL (test code = WBC) 9.8 K/mm3 4.5-12.5 N RED BLOOD CELL (test code = RBC) 6.21 mill/mm3 4.0-5.8 H HEMOGLOBIN (test code = HGB) 16.3 gram/dL 13.0-17.5 N HEMATOCRIT (test code = HCT) 48.4 % 42.0-52.0 N MEAN CELL VOLUME (test code = MCV) 77.9 fL 80-98 L MEAN CELL HGB (test code = MCH) 26.2 picogram 27.0-33.0 L MEAN CELL HGB CONCETRATION (test code = MCHC) 33.7 gram/dL 33.0-36. 0 N RED CELL DISTRIBUTION WIDTH (test code = RDW) 12.0 % 11.6-16. 2 N RED CELL DISTRIBUTION WIDTH SD (test code = RDW-SD) 34.2 fL 37 .0-51.0 L PLATELET COUNT (test code = PLT) 312 K/mm3 150-450 N MEAN PLATELET VOLUME (test code = MPV) 11.3 fL 6.7-11.0 H NEUTROPHIL % (test code = NT%) 75.1 % 39.0-69.0 H LYMPHOCYTE % (test code = LY%) 19.8 % 25.0-55.0 L MONOCYTE % (test code = MO%) 3.6 % 0.0-10.0 N EOSINOPHIL % (test code = EO%) 1.3 % 0.0-5.0 N BASOPHIL % (test code = BA%) 0.1 % 0.0-1.0 N NEUTROPHIL # (test code = NT#) 7.36 K/mm3 1.8-7.7 N LYMPHOCYTE # (test code = LY#) 1.94 K/mm3 1.0-5.0 N MONOCYTE # (test code = MO#) 0.35 K/mm3 0-0.8 N EOSINOPHIL # (test code = EO#) 0.13 K/mm3 0.0-0.5 N BASOPHIL # (test code = BA#) 0.01 K/mm3 0.0-0.2 N MANUAL DIFF REQUIRED (test code = MDIFF) NO
--- OUTSIDE RECORDS SUMMARY | 2020-01-20 20:40 | XMS REPORT | Continuity of Care Document ---
Author Author [facility] Organization [facility] Address [address] [place] [address] Phone Unavailable Care Team Providers Care C Architect Name Role Phone Unavailable Unavailable Payers Payer Name Policy Type Policy Number Effective Date Expiration Date S ource Problems This patient has no known problems. Allergies, Adverse Reactions, Alerts Allergy Name Allergy Type Status Severity Reaction(s) Onset Date Inacti ve Date Treating Clinician Comments Source No Known Allergies DA Active U 2016-12-07 00:00:00 [facility] Medications This patient has no known medications. Procedures This patient has no known procedures. Results Test Description Test Time Test Comments Results Result Comments Source LACTIC ACID 2019 18:02:00 Test Item LACTIC ACID (test code = LACT) 0.8 mmol/L 0.4-1.9 N COMMENTS TO FARMWORK[employer] DIVERSIFIED CROPS: add onBASIC METABOLIC [id number] 17:11:00* Test Item Value Reference Range Interpretation [...] code = CA) 8.3 mg/dL 8.5-10.1 L [id number] 16:42:00* Test Item Value Reference Range Interpretation Comments GLUBED (test code = GLUBED) 220 mg/dL 74-106 H Performed by certified continuous still operator at [facility] [id number] 14:56:00* Test Item Value Reference Range Interpretation Comments GLUBED (test code = GLUBED) 247 mg/dL 74-106 H Performed by certified continuous still operator at [facility] BASIC METABOLIC [id number] 13:07:00* Test Item Value Reference Range Interpretation Comments SODIUM (test code = NA) 145 mmol/L 136-145 N POTASSIUM (test code = K) 2.9 mmol/L 3.5-5.1 L Re sults called to [id number] by V.LAB.DINO 04/18/19 1307Critical results verified and [...] L SPECIMEN COMMENTS: Q4H while on insulin [id number] 12:44:00* Test Item Value Reference Range Interpretation Comments GLUBED (test code = GLUBED) 67 mg/dL 74-106 L Performed by certified continuous still operator at [facility] [id number] 11:41:00* Test Item Value Reference Range Interpretation Comments GLYCOSYLATED HEMOGLOBIN (HA1C) (test code = GLYHGB) 12.8 % HbA1 4. 8-6.0 H ESTIMATED AVERAGE GLUCOSE (test code = EAG) 321 MG/DL [id number] 11:30:00* Test Item Value Reference Range Interpretation Comments GLUBED (test code = GLUBED) 104 mg/dL 74-106 N Performed by certified continuous still operator at [facility] BASIC METABOLIC [id number] 10:00:00* Test Item Value Reference Range Interpretation [...] L SPECIMEN COMMENTS: Q4H while on insulin [id number] 09:54:00* Test Item Value Reference Range Interpretation Comments GLUBED (test code = GLUBED) 159 mg/dL 74-106 H Performed by certified continuous still operator at [facility] BASIC METABOLIC [id number] 09:53:00* Test Item Value Reference Range Interpretation [...] 8.5-10.1 SPECIMEN COMMENTS: Q4H while on insulin [id number] 09:17:00* Test Item Value Reference Range Interpretation Comments GLUBED (test code = GLUBED) 255 mg/dL 74-106 H Performed by certified continuous still operator at [facility] DRUGS OF ABUSE SCREEN [id number] 08:56:00* Test Item Value Reference Range Interpretation [...] NEGATIVE <300 ng/mL DRUGS OF ABUSE SCREEN [id number] 08:48:00* Test Item Value Reference Range Interpretation [...] code = [place]) NEGATIVE <300 ng/mL URINALYSIS [id number] 08:48:00* Test Item Value Reference Range Interpretation [...] FEW #/LPF FEW Urine Source? Clean CatchURINALYSIS [id number] 08:42:00* Test Item Value Reference Range Interpretation [...] per HPF NONE Urine Source? Clean CatchURINALYSIS [id number] 08:42:00* Test Item Value Reference Range Interpretation [...] #/LPF FEW Urine Source? Clean CatchBASIC METABOLIC [id number] 08:28:00* Test Item Value Reference Range Interpretation [...] dripSPECIMEN COMMENTS: Q8H while on insu sarah [id number] 08:28:00* Test Item Value Reference Range Interpretation Comments MAGNESIUM (test code = MAG) 1.8 mg/dL 1.8-2.4 N SPECIMEN COMMENTS: Q4H while on insulin dripSPECIMEN COMMENTS: Q8H while on insu sarah dripBASIC METABOLIC [id number] 08:22:00* Test Item Value Reference Range Interpretation [...] dripSPECIMEN COMMENTS: Q8H while on insu sarah [id number] 08:22:00* Test Item Value Reference Range Interpretation Comments MAGNESIUM (test code = MAG) 1.8 mg/dL 1.8-2.4 N SPECIMEN COMMENTS: Q4H while on insulin dripSPECIMEN COMMENTS: Q8H while on insu sarah [id number] 08:06:00* Test Item Value Reference Range Interpretation Comments GLUBED (test code = GLUBED) 322 mg/dL 74-106 H Performed by certified continuous still operator at [facility] [id number] 07:02:00* Test Item Value Reference Range Interpretation Comments GLUBED (test code = GLUBED) > 500 mg/dL 74-106 HH Performed by certified continuous still operator at [facility] - XR CHEST 1 [id number] 05:17:00 FAX: Solomon Palacios MD [place]: B St: [facility] FAX: Jihan Champion MD [phone] Name: SHARON DIAZ [facility] : 2000 Age/S: 19/M [address] [facility] Unit #: [id number] Loc: [place] [address] Phys: Solomon Palacios MD Acct: [id number] Dis Date: Status: REG ER PHONE #: [phone] Exam Date: 2019 0453 FAX #: [phone] Reason: Altered Mental Status EXAMS: CPT CODE: [id number] XR CHEST 1 V 52102 AFTER HOURS SERVICE ON: 2019 5:17 AM [...] By: [email or web address] Orig Print D/T: S: 2019 (0503) PAGE 1 Signed Report BASIC METABOLIC [id number] 05:12:00* Test Item Value Reference Range Interpretation [...] 652 mg/dL 74-106 Re sults called [place] [address] by GENEVIEVE 04/18/19 0512Critical results verified and [...] CA) 9.6 mg/dL 8.5-10.1 N HEPATIC FUNCTION [id number] 05:12:00* Test Item Value Reference Range Interpretation [...] reference range due to change in reagent. [id number] 05:12:00* Test Item Value Reference Range Interpretation Comments TROPONIN-I (test code = TROPI) <0.015 ng/mL 0-0.045 N [id number] 05:12:00* Test Item Value Reference Range Interpretation Comments ALCOHOL (test code = ALC) 181 mg/dL 0.0-3.0 H -- INTERPRETIVE DATA NOTE: POSITIVE SCREENING RESULTS SHOULD BE CONSIDERED PRESUMPTIVE.WHEN COLLECTED FOR MEDICAL PURPOSES ONLY. SPECIMEN WILL NOTBE COLLECTED BY CHAIN OF CUSTODY.IF A CONFIRMATION OF POSITIVE RESULTS IS DESIRED, ACONFIRMATION TEST MUST BE REQUESTED BY THE PHYSICIAN AT ANADDITIONAL CHARGE TO THE PATIENT. BETA [id number] 05:12:00* Test Item Value Reference Range Interpretation Comments BETA HYDROBUTYRATE (test code = BETHYD) 1.53 mmol/L 0.02-0.27 H LACTIC [id number] 05:11:00* Test Item Value Reference Range Interpretation Comments LACTIC ACID (test code = LACT) 5.9 mmol/L 0.4-1.9 HH Results called to [id number] by GENEVIEVE 04/18/19 0510Critical results verified and read back by Nurse?Y BASIC METABOLIC [id number] 05:09:00* Test Item Value Reference Range Interpretation [...] code = CA) mg/dL 8.5-10.1 HEPATIC FUNCTION [id number] 05:09:00* Test Item Value Reference Range Interpretation [...] TOTAL (test code = ALKP) IUnit/L 45-117 [id number] 05:09:00* Test Item Value Reference Range Interpretation Comments TROPONIN-I (test code = TROPI) ng/mL 0-0.045 [id number] 05:09:00* Test Item Value Reference Range Interpretation Comments ALCOHOL (test code = ALC) mg/dL 0-3 BETA [id number] 05:09:00* Test Item Value Reference Range Interpretation Comments BETA HYDROBUTYRATE (test code = BETHYD) 1.53 mmol/L 0.02-0.27 H - CT HEAD/BRAIN W/O [id number] 04:59:00 Name: SHARON DIAZ [facility] : 2000 Age/S: 19 / M [address] [facility] Unit #: [id number] Loc: [place] [address] Phys: Solomon Palacios MD Acct: [id number] Dis Date: Status: PRE ER PHONE #: [phone] Exam Date: 2019 0430 FAX #: [phone] Reason: Altered Mental Status EXAMS: CPT CODE: [id number] CT HEAD/BRAIN W/O CONT 35759 AFTER HOURS SERVICE ON: 2019 4:59 AM [...] 502) PAGE 1 Signed Report BASIC METABOLIC [id number] 04:56:00* Test Item Value Reference Range Interpretation [...] code = CA) mg/dL 8.5-10.1 HEPATIC FUNCTION [id number] 04:56:00* Test Item Value Reference Range Interpretation [...] TOTAL (test code = ALKP) IUnit/L 45-117 [id number] 04:56:00* Test Item Value Reference Range Interpretation Comments TROPONIN-I (test code = TROPI) ng/mL 0-0.045 [id number] 04:56:00* Test Item Value Reference Range Interpretation Comments ALCOHOL (test code = ALC) mg/dL 0-3 BETA [id number] 04:56:00* Test Item Value Reference Range Interpretation Comments BETA HYDROBUTYRATE (test code = BETHYD) 1.53 mmol/L 0.02-0.27 H CBC W/AUTO [id number] 04:53:00* Test Item Value Reference Range Interpretation [...] DIFF REQUIRED (test code = MDIFF) NO [id number] 08:21:00* Test Item Value Reference Range Interpretation Comments GLUBED (test code = GLUBED) 109 mg/dL 74-106 H Performed by certified continuous still operator at [facility]2019-09-18 08:21:00* Test Item Value Reference Range Interpretation Comments GLUBED (test code = GLUBED) 166 mg/dL 74-106 H Performed by certified continuous still operator at [facility]2019-09-16 10:12:00* Test Item Value Reference Range Interpretation Comments GLUBED (test code = GLUBED) 248 mg/dL 74-106 H Performed by certified continuous still operator at [facility] [id number] 10:12:00* Test Item Value Reference Range Interpretation Comments GLUBED (test code = GLUBED) 322 mg/dL 74-106 H Performed by certified continuous still operator at [facility] [id number] 10:12:00* Test Item Value Reference Range Interpretation Comments GLUBED (test code = GLUBED) 169 mg/dL 74-106 H Performed by certified continuous still operator at [facility] [id number] 10:12:00* Test Item Value Reference Range Interpretation Comments GLUBED (test code = GLUBED) 167 mg/dL 74-106 H Performed by certified continuous still operator at [facility] [id number] 10:12:00* Test Item Value Reference Range Interpretation Comments GLUBED (test code = GLUBED) 139 mg/dL 74-106 H Performed by certified continuous still operator at [facility] [id number] 10:12:00* Test Item Value Reference Range Interpretation Comments GLUBED (test code = GLUBED) 283 mg/dL 74-106 H Performed by certified continuous still operator at [facility] [id number] 07:46:00* Test Item Value Reference Range Interpretation Comments GLUBED (test code = GLUBED) 324 mg/dL 74-106 H Performed by certified continuous still operator at [facility] COMPREHENSIVE METABOLIC [id number] 08:36:00* Test Item Value Reference Range Interpretation [...] due to change in reagent. COMPREHENSIVE METABOLIC [id number] 08:19:00* Test Item Value Reference Range Interpretation [...] code = ALKP) IUnit/L 45-117 CBC W/AUTO [id number] 06:22:00* Test Item Value Reference Range Interpretation [...] NRBC#) 0.00 K/mm3 0.0-0.1 N CBC W/AUTO [id number] 06:20:00* Test Item Value Reference Range Interpretation [...] code = BA#) K/mm3 0.0-0.2 BASIC METABOLIC [id number] 03:07:00* Test Item Value Reference Range Interpretation [...] code = CA) 8.6 mg/dL 8.5-10.1 N [id number] 03:07:00* Test Item Value Reference Range Interpretation Comments PHOSPHORUS (test code = PHOS) 2.2 mg/dL 2.5-4.9 L [id number] 03:07:00* Test Item Value Reference Range Interpretation Comments MAGNESIUM (test code = MAG) 1.8 mg/dL 1.8-2.4 N BASIC METABOLIC [id number] 17:36:00* Test Item Value Reference Range Interpretation Comments SODIUM (test code = NA) 143 mmol/L 136-145 N POTASSIUM (test code = K) 2.7 mmol/L 3.5-5.1 Re sults called to [id number] by V.LAB.[facility] 02/03/19 1734Critical results verified and read back by Nurse? Y CHLORIDE (test code = CL) 115.0 mmol/L 98-107 H CARBON DIOXIDE (test code = CO2) 19.0 mmol/L 21-32 L ANION GAP (test code = GAP) 11.7 10-20 N RESULTS CALLED TO [id number] BY V.LAB.[facility] 02/03/19 1735 GLUCOSE (test code = [...] code = CA) 6.9 mg/dL 8.5-10.1 L [id number] 12:03:00* Test Item Value Reference Range Interpretation Comments GLUBED (test code = GLUBED) 178 mg/dL 74-106 H Performed by certified continuous still operator at [facility] [id number] 11:05:00* Test Item Value Reference Range Interpretation Comments GLUBED (test code = GLUBED) 168 mg/dL 74-106 H Performed by certified continuous still operator at [facility] BASIC METABOLIC [id number] 10:46:00* Test Item Value Reference Range Interpretation [...] CA) 8.2 mg/dL 8.5-10.1 L BASIC METABOLIC [id number] 10:42:00* Test Item Value Reference Range Interpretation [...] CALCIUM (test code = CA) mg/dL 8.5-10.1 [id number] 10:14:00* Test Item Value Reference Range Interpretation Comments GLUBED (test code = GLUBED) 182 mg/dL 74-106 H Performed by certified continuous still operator at [facility] [id number] 09:56:00* Test Item Value Reference Range Interpretation Comments PHOSPHORUS (test code = PHOS) 2.9 mg/dL 2.5-4.9 N [id number] 08:31:00* Test Item Value Reference Range Interpretation Comments GLUBED (test code = GLUBED) 161 mg/dL 74-106 H Performed by certified continuous still operator at [facility] [id number] 07:52:00* Test Item Value Reference Range Interpretation Comments GLYCOSYLATED HEMOGLOBIN (HA1C) (test code = GLYHGB) 12.4 % HbA1 4. 8-6.0 H ESTIMATED AVERAGE GLUCOSE (test code = EAG) 309 MG/DL [id number] 07:19:00* Test Item Value Reference Range Interpretation Comments GLUBED (test code = GLUBED) 170 mg/dL 74-106 H Performed by certified continuous still operator at [facility] BASIC METABOLIC [id number] 06:18:00* Test Item Value Reference Range Interpretation [...] CA) 8.2 mg/dL 8.5-10.1 L BASIC METABOLIC [id number] 06:10:00* Test Item Value Reference Range Interpretation [...] code = CA) mg/dL 8.5-10.1 CBC W/AUTO [id number] 05:27:00* Test Item Value Reference Range Interpretation [...] (test code = MDIFF) NO CBC W/AUTO [id number] 05:26:00* Test Item Value Reference Range Interpretation [...] # (test code = BA#) K/mm3 0.0-0.2 [id number] 05:15:00* Test Item Value Reference Range Interpretation Comments GLUBED (test code = GLUBED) 125 mg/dL 74-106 H Performed by certified continuous still operator at [facility] [id number] 05:15:00* Test Item Value Reference Range Interpretation Comments GLUBED (test code = GLUBED) 96 mg/dL 74-106 N Performed by certified continuous still operator at [facility] BASIC METABOLIC [id number] 02:39:00* Test Item Value Reference Range Interpretation Comments SODIUM (test code = NA) 145 mmol/L 136-145 RESU LT VERIFIED BY REPEAT ANALYSIS POTASSIUM (test code = K) 2.9 mmol/L 3.5-5.1 L Re sults called to [id number] by V.LAB.ROLDAN 02/03/19 0238Critical results verified and [...] COMMENTS: Q4H while on insulin dripBASIC METABOLIC [id number] 02:20:00* Test Item Value Reference Range Interpretation [...] L SPECIMEN COMMENTS: Q4H while on insulin [id number] 02:01:00* Test Item Value Reference Range Interpretation Comments GLUBED (test code = GLUBED) 100 mg/dL 74-106 N Performed by certified continuous still operator at [facility] [id number] 23:49:00* Test Item Value Reference Range Interpretation Comments GLUBED (test code = GLUBED) 139 mg/dL 74-106 H Performed by certified continuous still operator at [facility] BASIC METABOLIC [id number] 22:31:00* Test Item Value Reference Range Interpretation [...] NOT be accurate due to hemolysis.BASIC METABOLIC [id number] 22:24:00* Test Item Value Reference Range Interpretation [...] 308 mg/dL 74-106 H Performed by certified continuous still operator at [facility] BASIC METABOLIC [id number] 19:20:00* Test Item Value Reference Range Interpretation [...] dripSPECIMEN COMMENTS: Q8H while on insu sarah [id number] 19:20:00* Test Item Value Reference Range Interpretation Comments MAGNESIUM (test code = MAG) 1.9 mg/dL 1.8-2.4 N SPECIMEN COMMENTS: Q4H while on insulin dripSPECIMEN COMMENTS: Q8H while on insu sarah dripBASIC METABOLIC [id number] 19:06:00* Test Item Value Reference Range Interpretation [...] insulin dripSPECIMEN COMMENTS: Q8H while on insu saarh [id number] 19:06:00* Test Item Value Reference Range Interpretation Comments MAGNESIUM (test code = MAG) mg/dL 1.8-2.4 SPECIMEN COMMENTS: Q4H while on insulin dripSPECIMEN COMMENTS: Q8H while on insu sarah dripBASIC METABOLIC [id number] 15:01:00* Test Item Value Reference Range Interpretation [...] CA) 9.3 mg/dL 8.5-10.1 N HEPATIC FUNCTION [id number] 15:01:00* Test Item Value Reference Range Interpretation [...] reference range due to change in reagent. [id number] 15:01:00* Test Item Value Reference Range Interpretation Comments LIPASE (test code = LIP) 218 U/L 73.0-393.0 N [id number] 15:01:00* Test Item Value Reference Range Interpretation Comments MAGNESIUM (test code = MAG) 2.0 mg/dL 1.8-2.4 N [id number] 15:01:00* Test Item Value Reference Range Interpretation Comments TROPONIN-I (test code = TROPI) <0.015 ng/mL 0-0.045 N BASIC METABOLIC [id number] 14:51:00* Test Item Value Reference Range Interpretation [...] code = CA) mg/dL 8.5-10.1 HEPATIC FUNCTION [id number] 14:51:00* Test Item Value Reference Range Interpretation [...] TOTAL (test code = ALKP) IUnit/L 45-117 [id number] 14:51:00* Test Item Value Reference Range Interpretation Comments LIPASE (test code = LIP) U/L 73.0-393.0 [id number] 14:51:00* Test Item Value Reference Range Interpretation Comments MAGNESIUM (test code = MAG) mg/dL 1.8-2.4 [id number] 14:51:00* Test Item Value Reference Range Interpretation Comments TROPONIN-I (test code = TROPI) ng/mL 0-0.045 CBC W/O [id number] 14:24:00* Test Item Value Reference Range Interpretation [...] MPV) 10.6 fL 6.7-11.0 N CBC W/O [id number] 14:20:00* Test Item Value Reference Range Interpretation [...] (test code = MPV) fL 6.7-11.0 URINALYSIS [id number] 14:20:00* Test Item Value Reference Range Interpretation [...] Urine Source? Clean Catch- XR CHEST 1 [id number] 14:13:00 FAX: Jihan Champion MD [phone] [place]: St: [facility] FAX: Claudio Rodrigues MD Name: SHARON DIAZ [facility] : 2000 Age/S: 18/M [address] [facility] Unit #: [id number] Loc: [place] [address] Phys: Claudio Rodrigues MD Acct: [id number] Dis Date: Status: REG ER PHONE #: [phone] Exam Date: 02/02/2019 1340 FAX #: [phone] Reason: ABDOMINAL PAIN EXAMS: CPT CODE: [id number] XR CHEST 1 V 81374 REASON FOR EXAM: ABDOMINAL PAIN Exam Order [...] Re Garza; STUDENT TECHNOLOGIST Trnscrd Date/Time/By: 02/02/2019 (4509) : By: [email or web address] [facility] Print D/T: S: (9009) PAGE 1 Signed Rep ort [id number] 07:25:00* Test Item Value Reference Range Interpretation Comments GLUBED (test code = GLUBED) 223 mg/dL 74-106 H Performed by certified continuous still operator at [facility] [id number] 20:49:00* Test Item Value Reference Range Interpretation Comments GLUBED (test code = GLUBED) 252 mg/dL 74-106 H Performed by certified continuous still operator at [facility] [id number] 15:58:00* Test Item Value Reference Range Interpretation Comments GLUBED (test code = GLUBED) 235 mg/dL 74-106 H Performed by certified continuous still operator at [facility] [id number] 11:06:00* Test Item Value Reference Range Interpretation Comments GLUBED (test code = GLUBED) 228 mg/dL 74-106 H Performed by certified continuous still operator at [facility] BASIC METABOLIC [id number] 06:20:00* Test Item Value Reference Range Interpretation [...] CA) 8.4 mg/dL 8.5-10.1 L CBC W/AUTO [id number] 06:01:00* Test Item Value Reference Range Interpretation [...] DIFF REQUIRED (test code = MDIFF) NO [id number] 20:45:00* Test Item Value Reference Range Interpretation Comments GLUBED (test code = GLUBED) 316 mg/dL 74-106 H Performed by certified continuous still operator at [facility] BASIC METABOLIC [id number] 19:05:00* Test Item Value Reference Range Interpretation [...] code = FESAT) 28.13 % 13-45 N [id number] 19:01:00* Test Item Value Reference Range Interpretation Comments FERRITIN (test code = SHREYA) 745 ng/mL 8-388 H T4 [id number] 17:16:00* Test Item Value Reference Range Interpretation Comments T4 FREE (test code = T4F) 1.13 ng/dL 0.76-1.46 N THYROID STIMULATING [id number] 17:16:00* Test Item Value Reference Range Interpretation Comments THYROID STIMULATING HORMONE (test code = TSH) 7.070 uIU/mL 0.36-3.7 4 H TSH REFERENCE RANGES: EUTHYROID: 0.35 - 4.3 mIU/mL HYPO : > 5.5 mIU/mL HYPER : < 0.35 mIU/mL [id number] 16:45:00* Test Item Value Reference Range Interpretation Comments GLUBED (test code = GLUBED) 278 mg/dL 74-106 H Performed by certified continuous still operator at [facility] [id number] 12:26:00* Test Item Value Reference Range Interpretation Comments GLUBED (test code = GLUBED) 92 mg/dL 74-106 N Performed by certified continuous still operator at [facility] BASIC METABOLIC [id number] 11:51:00* Test Item Value Reference Range Interpretation [...] COMMENTS: Q4H while on insulin dripBASIC METABOLIC [id number] 11:48:00* Test Item Value Reference Range Interpretation [...] SPECIMEN COMMENTS: Q4H while on insulin dripLACTIC [id number] 11:29:00* Test Item Value Reference Range Interpretation Comments LACTIC ACID (test code = LACT) 0.6 mmol/L 0.4-1.9 N [id number] 11:07:00* Test Item Value Reference Range Interpretation Comments GLUBED (test code = GLUBED) 103 mg/dL 74-106 N Performed by certified continuous still operator at [facility] VENOUS BLOOD [id number] 09:58:00* Test Item Value Reference Range Interpretation [...] code = METHGB) 0.4 % 0.0-1.50 N [id number] 09:38:00* Test Item Value Reference Range Interpretation Comments GLUBED (test code = GLUBED) 141 mg/dL 74-106 H Performed by certified continuous still operator at [facility] LIPID PROFILE (CORONARY RISK)2019-01-05 06:47:00* Test Item [...] This LDL result is a direct measurement.========= [id number] 06:36:00* Test Item Value Reference Range Interpretation Comments GLUBED (test code = GLUBED) 269 mg/dL 74-106 H Performed by certified continuous still operator at [facility] [id number] 06:35:00* Test Item Value Reference Range Interpretation Comments GLYCOSYLATED HEMOGLOBIN (HA1C) (test code = GLYHGB) 11.1 % HbA1 4. 8-6.0 H ESTIMATED AVERAGE GLUCOSE (test code = EAG) 272 MG/DL [id number] 06:31:00* Test Item Value Reference Range Interpretation Comments LIPASE (test code = LIP) 186 U/L 73.0-393.0 N BASIC METABOLIC [id number] 06:30:00* Test Item Value Reference Range Interpretation [...] CA) 8.6 mg/dL 8.5-10.1 N BASIC METABOLIC [id number] 06:24:00* Test Item Value Reference Range Interpretation [...] code = CA) mg/dL 8.5-10.1 CBC W/O [id number] 05:51:00* Test Item Value Reference Range Interpretation [...] MPV) 11.3 fL 6.7-11.0 H CBC W/O [id number] 05:47:00* Test Item Value Reference Range Interpretation [...] VOLUME (test code = MPV) fL 6.7-11.0 [id number] 05:27:00* Test Item Value Reference Range Interpretation Comments GLUBED (test code = GLUBED) 301 mg/dL 74-106 H Performed by certified continuous still operator at [facility] [id number] 04:39:00* Test Item Value Reference Range Interpretation Comments GLUBED (test code = GLUBED) 332 mg/dL 74-106 H Performed by certified continuous still operator [facility] [facility] BASIC METABOLIC [id number] 03:25:00* Test Item Value Reference Range Interpretation [...] dripSPECIMEN COMMENTS: Q8H while on insu sarah [id number] 03:25:00* Test Item Value Reference Range Interpretation Comments MAGNESIUM (test code = MAG) 1.9 mg/dL 1.6-2.3 N SPECIMEN COMMENTS: Q4H while on insulin dripSPECIMEN COMMENTS: Q8H while on insu sarah [id number] 00:38:00* Test Item Value Reference Range Interpretation Comments GLUBED (test code = GLUBED) > 500 mg/dL 74-106 HH Performed by certified continuous still operator at [facility] URINALYSIS [id number] 23:35:00* Test Item Value Reference Range Interpretation [...] NONE SEEN per HPF NONE URINALYSIS W/O [id number] 23:35:00* Test Item Value Reference Range Interpretation Comments UA LEUKOCYTE ESTERASE W REFLEX (test code = LEUUR) NEGATIVE NEG ATIVE ACETONE [id number] 23:32:00* Test Item Value Reference Range Interpretation Comments ACETONE BLOOD (test code = ACETB) LARGE (80-100 mg/dL) NEGATIVE [id number] 23:20:00* Test Item Value Reference Range Interpretation Comments GLUBED (test code = GLUBED) > 500 mg/dL 74-106 HH Performed by certified continuous still operator at [facility] URINALYSIS [id number] 23:18:00* Test Item Value Reference Range Interpretation [...] = BACU) per HPF NONE URINALYSIS W/O [id number] 23:18:00* Test Item Value Reference Range Interpretation Comments UA LEUKOCYTE ESTERASE W REFLEX (test code = LEUUR) NEG ATIVE URINALYSIS [id number] 23:18:00* Test Item Value Reference Range Interpretation [...] = BACU) per HPF NONE URINALYSIS W/O [id number] 23:18:00* Test Item Value Reference Range Interpretation Comments UA LEUKOCYTE ESTERASE W REFLEX (test code = LEUUR) NEG ATIVE COMPREHENSIVE METABOLIC [id number] 23:16:00* Test Item Value Reference Range Interpretation [...] CK) 113 U/L 39-308 N COMPREHENSIVE METABOLIC [id number] 23:13:00* Test Item Value Reference Range Interpretation [...] code = CK) IUnit/L 26-208 CBC W/AUTO [id number] 23:04:00* Test Item Value Reference Range Interpretation [...]
[2020-01-20] MEDS: INSULIN REGULAR, HUMAN 3ML VL 100 UNIT in SODIUM CHLORIDE 0.9% 99 ML IV SCH ×2 (20:41)
[2020-01-20 22:03] LABS: ANION GAP 21.6 mmol/L (8-16); BLOOD UREA NITROGEN 6 mg/dL (7-26); BUN/CREATININE RATIO 4 (6-25); CALCIUM 8.2 mg/dL (8.4-10.2); CARBON DIOXIDE 11 mmol/L (22-29); CHLORIDE 108 mmol/L (98-107); EST GLOMERULAR FILTRATION RATE > 60 ML/MIN (60-); GLUCOSE 265 mg/dL (74-118); MAGNESIUM 1.7 MG/DL (1.3-2.1); POTASSIUM 3.6 mmol/L (3.5-5.1); SODIUM 137 mmol/L (136-145)
[2020-01-20] MEDS: MAGNESIUM SULF 1GRAM/DEXTROSE 100 ML IV PRN (22:26)
[2020-01-20] MEDS: DEXTROSE 5%/0.45% SOD CHL 1,000 ML IV SCH (22:41)
--- NOTE | 2020-01-20 22:41 | NUR ---
Normal saline stopped at this time due to glucose of 187. Patient started on D5 1/2 normal saline at 100 mL's per hour as ordered by protocol.
[2020-01-21] VITALS (8 sets, daily range): BP systolic 99–125; BP diastolic 59–81
--- NOTE | 2020-01-21 00:26 | NUR ---
patient is aaox4, no distress noted, no complaints at this time
--- NOTE | 2020-01-21 00:29 | NUR ---
D5 1/2 NS titrated to 125 mL's per hour due to glucose of 148.
[2020-01-21] MEDS ORDERED: DIATRIZOATE MEGL/DIATRIZOA SOD 30 ML BTL PO ONE (00:30)
[2020-01-21] MEDS ORDERED: ACETAMINOPHEN 325 MG TAB PO PRN (01:30)
[2020-01-21] MEDS ORDERED: ONDANSETRON HCL INJ 2MG/ML 2ML 2 MG/ML VIAL IV PRN (01:30)
--- NOTE | 2020-01-21 01:35 | NUR ---
Received report from ER nurse.
[2020-01-21 01:40] LABS: ANION GAP 17.5 mmol/L (8-16); BLOOD UREA NITROGEN 6 mg/dL (7-26); BUN/CREATININE RATIO 5 (6-25); CALCIUM 8.4 mg/dL (8.4-10.2); CARBON DIOXIDE 15 mmol/L (22-29); CHLORIDE 110 mmol/L (98-107); CREATININE, SERUM 1.27 mg/dL (0.72-1.25); EST GLOMERULAR FILTRATION RATE > 60 ML/MIN (60-); GLUCOSE 105 mg/dL (74-118); MAGNESIUM 1.9 MG/DL (1.3-2.1); POTASSIUM 3.5 mmol/L (3.5-5.1); SODIUM 139 mmol/L (136-145)
--- NOTE | 2020-01-21 01:51 | NUR ---
Patient arrived to floor via w/c.
--- NOTE | 2020-01-21 02:01 | Diagnostic Imaging Report ---
EXAMINATION: CHEST 2 VIEWS INDICATION: Chest pain COMPARISON: None FINDINGS: TUBES and LINES: None. LUNGS: Normal lung volumes. Lungs are clear. No consolidations. PLEURA: No pleural effusion or pneumothorax. HEART AND MEDIASTINUM: The cardiomediastinal silhouette is unremarkable. BONES AND SOFT TISSUES: No acute osseous lesion. Soft tissues are unremarkable. UPPER ABDOMEN: No free air under the diaphragm. IMPRESSION: No acute thoracic radiographic abnormality. Signed by: Reyes Austin DO on 01/21/2020 1:58 AM
--- NOTE | 2020-01-21 02:01 | Diagnostic Imaging Report ---
EXAM: CT Abdomen and Pelvis WITHOUT contrast INDICATION: Abdominal pain COMPARISON: None. TECHNIQUE: Abdomen and pelvis were scanned utilizing a multidetector helical scanner from the lung base to the pubic symphysis without administration of IV contrast. Absence of intravenous contrast decreases sensitivity for detection of focal lesions and vascular pathology. Coronal and sagittal reformations were obtained. Routine protocol was performed. IV CONTRAST: None ORAL CONTRAST: Gastrografin COMPLICATIONS: None RADIATION DOSE: Total DLP: 451 mGy*cm Estimated effective dose: (DLP x 0.015 x size factor) mSv CTDIvol has been reviewed. It is below the limits set by the Radiation Protocol Committee (RPC). Dose modulation, iterative reconstruction, and/or weight based adjustment of the mA/kV was utilized to reduce the radiation dose to as low as reasonably achievable. FINDINGS: LINES and TUBES: None. LOWER THORAX: Unremarkable HEPATOBILIARY: No focal hepatic lesions. No biliary ductal dilation. GALLBLADDER: No radio-opaque stones or sludge. No wall thickening. SPLEEN: No splenomegaly. PANCREAS: No focal masses or ductal dilatation. ADRENALS: No adrenal nodules KIDNEYS/URETERS: No hydronephrosis. No cystic or solid mass lesions. No stones. GI TRACT: No abnormal distention, wall thickening, or evidence of bowel obstruction. Moderate colonic stool volume. Appendix is normal. PELVIC ORGANS/BLADDER: Unremarkable. LYMPH NODES: No lymphadenopathy. VESSELS: Unremarkable. PERITONEUM / RETROPERITONEUM: No free air or fluid. BONES: Unremarkable. SOFT TISSUES: Mild edema about a small fat containing paraumbilical hernia. IMPRESSION: Moderate colonic stool volume, correlate for constipation. Mild edema about a small fat containing paraumbilical hernia, correlate for point tenderness. Signed by: Reyes Austin DO on 01/21/2020 1:57 AM
--- NOTE | 2020-01-21 02:51 | Consultation ---
DATE OF CONSULTATION: 01/20/2020 Pulmonary Critical Care Medicine Consult REASON FOR REFERRAL: DKA. HISTORY OF PRESENT ILLNESS: Mr. Serrano is a pleasant 19-year-old gentleman with DKA. The patient had DKA once before in 2019. Originally, he was taken 10-15 units twice a day with 10 units at bedtime using his insulin pen. However, recently, last few months, he has been going down to insulin about once a day. He says he checks his glucose at home. He does not see the doctor regularly and actually denies having PCP. The patient has been having three days of generalized weakness, nausea, and emesis. He has been checking his sugar and it has been registering high. He came to emergency room. Glucose was 570. Anion gap was calculated at 28 per computer. Bicarbonate was 8 on original blood draw, potassium 3.9, sodium 132. Lipase 34. At this point, he is placed on insulin drip and admitted. PAST MEDICAL HISTORY: Diabetes. MEDICATIONS: Insulin as stated above. No other medications. ALLERGIES: NO KNOWN DRUG ALLERGIES. SOCIAL HISTORY: Light smoker, no heavy alcohol. No drugs. FAMILY HISTORY: Noncontributory to this condition. REVIEW OF SYSTEMS: GENERAL: No weight gain. OPHTHALMOLOGIC: No floaters. ENT: No known thyroid disease. PULMONARY: No asthma. CARDIAC: No heart attack. GI: No constipation. : No diarrhea. DERMATOLOGIC: No rash. NEUROLOGIC: No seizures. PSYCHIATRIC: No depression. OBJECTIVE: VITAL SIGNS: The patient is afebrile, with vital signs noted per the chart record. Residual heart rate was 120 beats per minute, better. HEENT: Normocephalic and atraumatic. NECK: Supple. Throat midline. LUNGS: Bilateral air entry, clear. CARDIOVASCULAR: S1, S2. No murmurs, rubs, or gallops. ABDOMINAL: Soft and nontender. EXTREMITIES: No clubbing. No cyanosis. There is no edema. INTEGUMENT: No rash. No purpura. LABORATORY DATA: Glucose come down to 148. Magnesium 1.7. Last potassium 3.6 still. His serum bicarbonate now 11. IMPRESSION AND PLAN: 1. Diabetic ketoacidosis. 2. Medication nonadherence. 3. Uncontrolled diabetes. 4. Metabolic acidosis. 5. Elevated creatinine, 1.7. Acute kidney injury. 6. Dehydration. Continue insulin drip. Follow up serial labs and electrolytes. Check hemoglobin A1c. Check TSH. Follow up serial clinical exams. Thank you very much, Dr. García for this consult. Please call for questions. Dr. De La O to pursue followup tomorrow. MD REKHA Connor/ELMER /[id number]
[2020-01-21 05:00] LABS: ANION GAP 15.9 mmol/L (8-16); BLOOD UREA NITROGEN 7 mg/dL (7-26); BUN/CREATININE RATIO 6 (6-25); CALCIUM 8.5 mg/dL (8.4-10.2); CARBON DIOXIDE 14 mmol/L (22-29); CHLORIDE 111 mmol/L (98-107); EST GLOMERULAR FILTRATION RATE > 60 ML/MIN (60-); GLUCOSE 102 mg/dL (74-118); MAGNESIUM 1.7 MG/DL (1.3-2.1); SODIUM 138 mmol/L (136-145)
[2020-01-21 05:21] LABS: POTASSIUM 2.9 mmol/L (3.5-5.1)
[2020-01-21] MEDS ORDERED: POTASSIUM CHLORIDE 20MEQ/100ML 100 ML ONE ×2 (05:40→05:42)
[2020-01-21] MEDS ORDERED: MAGNESIUM SULF 1GRAM/DEXTROSE 100 ML IV ONE (05:49)
[2020-01-21] MEDS: MAGNESIUM SULF 1GRAM/DEXTROSE 100 ML IV PRN (05:54)
[2020-01-21] MEDS: DEXTROSE 5%/0.45% SOD CHL 1,000 ML IV SCH ×3 (05:55→23:57)
--- NOTE | 2020-01-21 06:14 | NUR ---
Patient on insulin drip as order by . Patient received KCL and potassium run.
[2020-01-21] MEDS: INSULIN REGULAR, HUMAN 3ML VL 100 UNIT in SODIUM CHLORIDE 0.9% 99 ML IV SCH ×2 (06:30)
[2020-01-21 09:12] LABS: ANION GAP 15.8 mmol/L (8-16); BLOOD UREA NITROGEN 7 mg/dL (7-26); BUN/CREATININE RATIO 7 (6-25); CALCIUM 8.6 mg/dL (8.4-10.2); CARBON DIOXIDE 14 mmol/L (22-29); CHLORIDE 112 mmol/L (98-107); CREATININE, SERUM 1.05 mg/dL (0.72-1.25); EST GLOMERULAR FILTRATION RATE > 60 ML/MIN (60-); MAGNESIUM 1.9 MG/DL (1.3-2.1); SODIUM 139 mmol/L (136-145)
[2020-01-21 09:19] LABS: GLUCOSE 48 mg/dL (74-118); POTASSIUM 2.8 mmol/L (3.5-5.1)
[2020-01-21 12:48] LABS: ANION GAP 15.7 mmol/L (8-16); BLOOD UREA NITROGEN 8 mg/dL (7-26); BUN/CREATININE RATIO 8 (6-25); CALCIUM 8.2 mg/dL (8.4-10.2); CARBON DIOXIDE 14 mmol/L (22-29); CHLORIDE 109 mmol/L (98-107); EST GLOMERULAR FILTRATION RATE > 60 ML/MIN (60-); GLUCOSE 223 mg/dL (74-118); MAGNESIUM 1.6 MG/DL (1.3-2.1); POTASSIUM 3.7 mmol/L (3.5-5.1); SODIUM 135 mmol/L (136-145)
[2020-01-21 14:31] LABS: CHOL/HDL RATIO 6.4 (3.9-4.7)
[2020-01-21] MEDS: INSULIN GLARGINE 100 UNITS/ML VIAL SQ SCH (17:00)
[2020-01-21] MEDS: INSULIN LISPRO 100 UNIT/1 ML 3ML VIAL SQ SCH ×3 (17:00→20:35)
[2020-01-21 17:14] LABS: ANION GAP 11.5 mmol/L (8-16); BLOOD UREA NITROGEN 9 mg/dL (7-26); BUN/CREATININE RATIO 9 (6-25); CALCIUM 8.2 mg/dL (8.4-10.2); CARBON DIOXIDE 17 mmol/L (22-29); CHLORIDE 107 mmol/L (98-107); CREATININE, SERUM 1.04 mg/dL (0.72-1.25); EST GLOMERULAR FILTRATION RATE > 60 ML/MIN (60-); GLUCOSE 285 mg/dL (74-118); MAGNESIUM 1.5 MG/DL (1.3-2.1); POTASSIUM 3.5 mmol/L (3.5-5.1); SODIUM 132 mmol/L (136-145)
--- NOTE | 2020-01-21 18:48 | NUR ---
PT VS STABLE. PER MD TITRATED DOWN INSULIN DRIP WHILE ADDING SLIDING SCALE. DRIP NOW DC.
--- NOTE | 2020-01-21 20:00 | NUR ---
Received change of shift report from AM nurse. Patient in bed in supine position. Denies pain or discomfort at this time.
--- NOTE | 2020-01-21 20:16 | History and Physical ---
REPORT TITLE: Endocrine Consultation. BODY AFTER REPORT TITLE: This is a patient of Dr. García. Thank you very much for referring this patient. HISTORY OF PRESENT ILLNESS: This is a 19-year-old gentleman, who was referred to me for evaluation of uncontrolled diabetes mellitus and diabetic ketoacidosis. According the patient he was diagnosed to have diabetes about a year back and has been on combination of the Lantus and Humalog insulin. The patient has been very noncompliant about taking the medication. He came to the hospital with history of nausea, vomiting, and abdominal pain. On further evaluation, his blood sugar was found to be 570, anion gap was 27, CO2 was 8. The patient was started on IV fluids and insulin drip. The patient has family history of diabetes mellitus. He tells me he does not smoke or drink alcohol. PHYSICAL EXAMINATION: GENERAL: Today, the patient is alert, awake, little bit apprehensive, and slightly dehydrated. VITAL SIGNS: His heart rate is around 100, blood pressure 120/80 mmHg. HEENT: Essentially unremarkable. Thyroid is palpable. Clinically, he is near euthyroid. CHEST: Bilateral vesicular breathing. No rales. CARDIOVASCULAR: First and second heart sounds. There is no third or fourth heart sounds. Ejection systolic murmur sound grade 2/6. EXTREMITIES: The patient has evidence of diabetic sensory neuropathy in both lower extremities. His anion gap has improved to 5.9. CLINICAL IMPRESSION: Diabetes mellitus type 1, uncontrolled with complications, noncompliance in taking the medication, diabetic ketoacidosis. PLAN: At this time is to continue with IV fluids, taper of the insulin drip slowly and start him on the Lantus and Humalog insulin. Thanks again for referring this patient. I will be following this patient with you. MD LEILANI Ellsworth/SABASL /[id number]
--- NOTE | 2020-01-22 | NUR ---
Patient blood glucose 249 coverage given. Then spot check 167.
[2020-01-22 04:50] VITALS: BP 109/71
[2020-01-22 05:04] LABS: BASOPHILS % 0.3 % (0.0-1.0); EOSINOPHILS # (AUTO) 0.2 (0.0-0.4); EOSINOPHILS % 5.2 % (0.0-6.0); LYMPHOCYTES # (AUTO) 1.6 (1.0-3.2); LYMPHOCYTES % 51.1 % (18.0-39.1); MEAN CORPUSCULAR HEMOGLOBIN 28.3 pg (28-32); MEAN CORPUSCULAR HGB CONC 35.1 g/dL (31-35); MEAN CORPUSCULAR VOLUME 80.6 fL (81-99); MONOCYTES # (AUTO) 0.2 (0.2-0.8); MONOCYTES % 6.2 % (4.4-11.3); NEUTROPHILS # (AUTO) 1.1 (2.1-6.9); NEUTROPHILS % 37.2 % (38.7-80.0); PLATELET COUNT 167 x10e3/uL (140-360); RED BLOOD COUNT 4.59 x10e6/uL (4.3-5.7); RED CELL DISTRIBUTION WIDTH 13.3 % (11.7-14.4)
[2020-01-22 05:20] LABS: MAGNESIUM 1.5 MG/DL (1.3-2.1); PHOSPHORUS 2.3 MG/DL (2.3-4.7)
[2020-01-22 05:44] LABS: ANION GAP 14.2 mmol/L (8-16); BLOOD UREA NITROGEN 6 mg/dL (7-26); BUN/CREATININE RATIO 7 (6-25); CARBON DIOXIDE 16 mmol/L (22-29); CHLORIDE 107 mmol/L (98-107); CREATININE, SERUM 0.88 mg/dL (0.72-1.25); EST GLOMERULAR FILTRATION RATE > 60 ML/MIN (60-); GLUCOSE 342 mg/dL (74-118); POTASSIUM 3.2 mmol/L (3.5-5.1); SODIUM 134 mmol/L (136-145)
--- NOTE | 2020-01-22 06:27 | NUR ---
Spot checked patient blood glucose = 301. S/W Dr Erwin states use SS. 4 units given per SS.
[2020-01-22] MEDS: INSULIN LISPRO 100 UNIT/1 ML 3ML VIAL SQ SCH ×5 (06:38→12:22)
[2020-01-22 07:38] VITALS: BP 110/64
[2020-01-22 07:42] VITALS: BP 110/64
[2020-01-22] MEDS: INSULIN GLARGINE 100 UNITS/ML VIAL SQ SCH (07:53)
[2020-01-22] MEDS ORDERED: MAGNESIUM SULFATE 2GM/50ML 50 ML IV ONE (10:30)
[2020-01-22] MEDS ORDERED: POTASSIUM CHLORIDE 20 MEQ TAB CR PO ONE (10:30)
[2020-01-22] MEDS ORDERED: POTASSIUM CHLORIDE 10MEQ EA PO ONE (10:30)
[2020-01-22] MEDS ORDERED: MAGNESIUM SULFATE 2GM/50ML IV ONE (10:30)
--- NOTE | 2020-01-22 11:03 | NUR ---
Nutrition Screen Note RD Recommendation for Physician: -Continue ADA diet Plan of Care: RD following, monitoring for tolerance and adequacy Nutrition reason for involvement: consult for diabetic diet education Primary Diagnose(s): nausea, dizzy, DKA PMH: diabetes Ht: 67 in Wt: 175 lb BMI: 27.4 kg/m2 IBW:[address] Assessment: (01/22/20) Chart reviewed. Labs and meds reviewed. Pt is a 19 year old male admitted with nausea, dizziness, and DKA. Pt has a HgbA1c of 14.8%. Pt reports eating all of his meals, but mentioned he had unintentional weight loss in the past 1 months. Pt stated he used to weigh ~200 lbs. Pt currently has a weight of 175 lbs in chart. If accurate, this would be a 12.5% weight loss in 1 months- significant weight loss. RD discussed and provided written materials regarding carbohydrate counting and reading the food label. Pt verbalized understanding and questions were answered. RD provided pt with dietitian office number if he had any follow-up questions. Will continue to monitor Current Diet: 1800 ADA Malnutrition Evaluation (01/22/20) The patient does not meet criteria for a specified degree of malnutrition at this time. Will re-evaluate at follow-up as appropriate. Energy intake: Adequate PO intake reported Weight loss: >5% in 1 month (Acute) per pt report Fat loss: no loss identified per observation Muscle loss: no loss identified per observation Supporting Evidence: Fluid accumulation: no edema per MD note Functional Status: no changes Diet Education Needs Assessment: (01/21) Diet education indicated Learner(s): pt Barriers: no barriers identified Cultural/Language Modifications: no cultural/language modifications Readiness: eager/acceptance Method: explanation/ discussion, handout Topics: carbohydrate counting and reading the food label Understanding/Compliance: pt verbalized understanding and questions were answered. RD provided pt with dietitian office number if he had any follow-up questions. Nutrition Care Level: low Signed: Kymberly Lugo RD, LD
[2020-01-22] MEDS: DEXTROSE 5%/0.45% SOD CHL 1,000 ML IV SCH (12:30)
--- NOTE | 2020-01-22 13:58 | Discharge Summary ---
BENEFITS CLERK: Dr. Rodo Erwin,, cut roll machine offbearer. FINAL DIAGNOSES: 1. Diabetic ketoacidosis, completely resolved. 2. Diabetes type 1, on insulin. The patient is noncompliant. 3. Metabolic acidosis, electrolyte disorder, all corrected. SUMMARY: The patient is a 19 years male type 1 diabetes, has been on insulin over a year or so at least. The patient apparently did not take his insulin. He did follow up [facility] where the patient was getting treatment, but somehow he did not follow up and did not take insulin and came in with diabetic ketoacidosis. All his electrolytes improving and corrected. His potassium today was 3.2. He is getting potassium replacement prior to discharge home. He also has I guess 2 g of magnesium sulfate as well. The patient tolerated all his diet. The patient knows how to inject his insulin. He did know about diabetic diet, but noncompliant. I have a dietitian to see the patient and give the patient information on diabetic diet as well. I told the patient that he needs to follow up with his family physician next week and depending on his diet and his sugar outside, he may need further adjustment of his insulin. He may follow up with Dr. Rodo Erwin if he wishes or he can follow up with his family physician and have his diabetes rechecked. Discharge instructions already given to the patient. He will take Lantus 30 units subcu at bedtime, Humalog 7 units before meals. Given insulin syringes and if needed glucometer, test strips and lancets. All instructions were given to the patient. It is very important that the patient will be compliant to his insulin injection and I have told him that as long as he gives himself insulin injection, even if his diabetes is not under good control, he will not have a DKA problem as long as he takes his insulin. The patient expressed understanding. He will be discharged home today and he will follow up with his family physician and Dr. Rodo Erwin for his overall management. MD LUCI Silverman/MODL /[id number]
[2020-01-22] MEDS ORDERED: INSULIN LISPRO 100 UNIT/1 ML 3ML VIAL SQ SCH (16:30)
[2020-01-22 16:55] VITALS: BP 112/75
[2020-01-22] MEDS ORDERED: INSULIN GLARGINE 100 UNITS/ML VIAL SQ SCH (17:00)
--- NOTE | 2020-01-22 17:27 | NUR ---
reviewed dc instructions with pt. verbalized understanding. gave rx. dc stable
== END 2020-01-22 17:28 | disposition home or self-care (01) | DRG 638 ==
LOC: ER 19:28 → ERHOLD 20:37 → IMCU 01-21 01:38
PROVIDERS: ADMIT Internal Medicine; ATTEND Internal Medicine
DX: E10.10 Type 1 diabetes mellitus with ketoacidosis without coma (principal); N17.9 Acute kidney failure, unspecified; Z79.4 Long term (current) use of insulin; E87.8 Other disorders of electrolyte and fluid balance, not elsewhere classified; Z11.59 Encounter for screening for other viral diseases; Z91.11 Patient's noncompliance with dietary regimen; Z91.14 Patient's other noncompliance with medication regimen; E86.0 Dehydration
CPT/HCPCS: 36415; 71046; 74176; 80048; 80053; 80061; 81001; 82150; 82948; 83036; 83690; 83735; 84100; 84443; 85025; 96361; 96372; 99284; J1815; J1817; J2405; J3475; J3480; J7030; J7050; U0002